=== PATIENT | female | born 1990 | race Caucasian/White ===

== ENCOUNTER 2025-01-01 18:27 | Inpatient (IN) | payer OTHER, SELFPAY ==
--- OUTSIDE RECORDS SUMMARY | 2024-12-31 18:00 | XMS_ITS | Encounter Summary ---
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 Amphetamines 1000 ng/mL Barbiturates 200 ng/mL Benzodiazepines 200 ng/mL Cocaine 300 ng/mL Fentanyl 1 ng/mL Opiates 300 ng/mL Oxycodone 100 ng/mL THC 50 ng/mL Semi-quantitative assay for screening purposes only. Unconfirmed screening result should not be used for non-medical purposes. *ALTERNATE METHOD CONFIRMATION DONE UPON REQUEST ONLY* us Stefano Thompson MD LAB URINE ORDERABLES Final Resul t Performing Organization Address [facility]/ZIP Co de Phone Number [facility] [address] [place] [address], * (ABNORMAL) Salicylate level (12/31/2024 6:34 PM EST) Salicylate Level <1.7(L) 2.0 - 29.0 mg/dL LAB CHEMISTRY METHOD 12/31/2024 7:13 PM EST [facility] Blood Venous blood specimen / Unknown Venipuncture / Unknown 12/31/2024 6:34 PM EST 12/31/2024 6:50 PM EST us Stefano Thompson MD LAB BLOOD ORDERABLES Final Resul t Performing Organization Address [facility]/ZIP Co de Phone Number [facility] [address] [place] [address], * (ABNORMAL) Acetaminophen level (12/31/2024 6:34 PM EST) Acetaminophen Level <2.0(L) 10.0 - 30.0 mcg/mL LAB CHEMISTRY METHOD 12/31/2024 7:13 PM EST [facility] Blood Venous blood specimen / Unknown Venipuncture / Unknown 12/31/2024 6:34 PM EST 12/31/2024 6:50 PM EST us Stefano Thompson MD LAB BLOOD ORDERABLES Final Resul t Performing Organization Address [facility]/ZIP Co de Phone Number [facility] [address] [place] [address], [place] [phone] * Ethanol (12/31/2024 6:34 PM EST) Ethanol Level <3 0 - 10 mg/dL LAB CHEMISTRY METHOD 12/31/2024 7:13 PM [facility] Blood Venous blood specimen / Unknown Venipuncture / Unknown 12/31/2024 6:34 PM EST 12/31/2024 6:50 PM EST us Stefano Thompson MD LAB BLOOD ORDERABLES Final Resul t Performing Organization Address [facility] Co de Phone Number [facility] [address] [place] [address], [place] [phone] * (ABNORMAL) Comprehensive metabolic panel (12/31/2024 6:34 PM EST) Pathologist [facility] Sodium 137 133 - 145 mmol/L LAB CHEMISTRY METHOD 12/31/2024 7:13 PM [facility] Potassium 3.4(L) 3.5 - 5.5 mmol/L LAB CHEMISTRY METHOD 12/31/2024 7:13 PM [facility] Chloride 103 96 - 110 mmol/L LAB CHEMISTRY METHOD 12/31/2024 7:13 PM [facility] CO2 29 21 - 32 mmol/L LAB CHEMISTRY METHOD 12/31/2024 7:13 PM [facility] Anion Gap 5 3 - 11 LAB CHEMISTRY METHOD 12/31/2024 7:13 PM [facility] Glucose 116(H) 70 - 100 mg/dL LAB CHEMISTRY METHOD 12/31/2024 7:13 PM [facility] BUN 13 5 - 25 mg/dL LAB CHEMISTRY METHOD 12/31/2024 7:13 PM [facility] Creatinine 0.63 0.50 - 1.10 mg/dL LAB CHEMISTRY METHOD 12/31/2024 7:13 PM [facility] eGFR 119 >=60 mL/min/1. 73m2 LAB CHEMISTRY METHOD 12/31/2024 7:13 PM [facility] Comment:Calculation based on the Chronic Kidney Disease Epidemiology Collaboration (CKD-EPI) equation refit without adjustment for race. BUN/Creatinine Ratio 20.6 LAB CHEMISTRY METHOD 12/31/2024 7:13 PM [facility] Calcium 9.3 8.5 - 10.5 mg/dL LAB CHEMISTRY METHOD 12/31/2024 7:13 PM [facility] AST (SGOT) 34 10 - 42 unit/L LAB CHEMISTRY METHOD 12/31/2024 7:13 PM [facility] ALT (SGPT) 104(H) 10 - 60 unit/L LAB CHEMISTRY METHOD 12/31/2024 7:13 PM [facility] Alkaline Phosphatase 122(H) 42 - 121 unit/L LAB CHEMISTRY METHOD 12/31/2024 7:13 PM [facility] Total Protein 6.9 6.0 - 8.0 g/dL LAB CHEMISTRY METHOD 12/31/2024 7:13 PM [facility] Albumin 3.7 3.2 - 5.0 g/dL LAB CHEMISTRY METHOD 12/31/2024 7:13 PM [facility] Total Bilirubin 0.3 0.0 - 1.4 mg/dL LAB CHEMISTRY METHOD 12/31/2024 7:13 PM [facility] Blood Venous blood specimen / Unknown Venipuncture / Unknown 12/31/2024 6:34 PM EST 12/31/2024 6:50 PM EST us Stefano Thompson MD LAB BLOOD ORDERABLES Final Resul t [facility] [address] [place] [address], * POC , urine manually resulted (12/31/2024 6:13 PM EST) HCG, Ur POC Negative Negative POC hCG Int QC Pass? Yes Yes Urine Urine specimen obtained by clean catch procedure / Unknown 12/31/2024 6:13 PM EST José Manuel Angel MD POINT OF CARE TEST ENTER/EDIT ORDERABLES Final Result documented in this encounter Visit Diagnoses Diagnosis Current moderate episode of major depressive disorder, unspecified whether recurrent (CMS/HCC V24, CMS/HCC V28)- Primary documented in this encounter Administered Medications Active Administered Medications - up to 3 most recent administrations Medication Order MAR Action Action Date Dose Rate Site bicalutamide (CASODEX) tablet 50 mg 50 mg, oral, Daily, First dose on 01/01/25 at 0900, Antineoplastic Hazardous Medication - Single pair of ASTM standard [id number] certified gloves - Eye/face protection if vomit or potential to spit up - Do NOT split, crush, or open dosage units Given 01/01/2025 10:05 AM EST 50 mg cloNIDine (CATAPRES) tablet 0.1 mg 0.1 mg, oral, 2 times daily, First dose on 01/01/25 at 0900 Given 01/01/2025 9:32 AM EST 0.1 mg estradioL (ESTRACE) tablet 2 mg 2 mg, oral, 3 times daily, First dose on 01/01/25 at 0900, Package insert for estrogens should be provided to patients with first dose and every 30 days of therapy. Hazardous Medication Intact: - Single pair of ASTM standard [id number] certified gloves - Eye/face protection if vomit or potential to spit up Manipulated: - Double pair of ASTM standard [id number] certified gloves - Eye/face protection if vomit or potential to spit up - Staff at reproductive risk must also wear a hazardous gown - Crushing must be performed in sealed closed pouch - Splitting/cutting should be performed by pharmacy, if possible Given 01/01/2025 2:17 PM EST 2 mg Given 01/01/2025 10:04 AM EST 2 mg finasteride (PROPECIA) tablet 1 mg 1 mg, oral, Daily, First dose on 01/01/25 at 0900, Hazardous Medication Intact: - Single pair of ASTM standard [id number] certified gloves - Eye/face protection if vomit or potential to spit up - Do NOT split, crush, or open dosage units Given 01/01/2025 10:05 AM EST 1 mg gabapentin (NEURONTIN) capsule 600 mg 600 mg, oral, 3 times daily, First dose on 01/01/25 at 0900 Given 01/01/2025 2:17 PM EST 600 mg Given 01/01/2025 9:32 AM EST 600 mg naltrexone (DEPADE) tablet 100 mg 100 mg, oral, Daily, First dose on 01/01/25 at 0900 Given 01/01/2025 10:06 AM EST 100 mg prazosin (MINIPRESS) capsule 1 mg 1 mg, oral, Daily, First dose on 01/01/25 at 0900 Given 01/01/2025 9:32 AM EST 1 mg sertraline (ZOLOFT) tablet 100 mg 100 mg, oral, Daily, First dose on 01/01/25 at 0900 Given 01/01/2025 9:32 AM EST 100 mg Inactive Administered Medications - up to 3 most recent administrations Medication Order MAR Action Action Date Dose Rate Site acetaminophen (TYLENOL) tablet 650 mg 650 mg, oral, Once, On 01/01/25 at 0005, For 1 dose Given 01/01/2025 3:29 AM EST 650 mg LORazepam (ATIVAN) tablet 2 mg 2 mg, oral, Once, On 01/01/25 at 0322, For 1 dose Given 01/01/2025 3:29 AM EST 2 mg documented in this encounter Historical Medications * This list may reflect changes made after this encounter. sertraline (ZOLOFT) 100 mg tablet Take 1 tablet (100 mg total) by mouth 1 (one) time each day. 11/24/2024 prazosin (MINIPRESS) 1 mg capsule Take 1 capsule (1 mg total) by mouth 1 (one) time each day. at bedtime naltrexone (DEPADE) 50 mg tablet Take 2 tablets (100 mg total) by mouth daily. 09/14/2024 melatonin 10 mg tablet Take 1 tablet (10 mg total) by mouth at bedtime as needed for sleep. 12/26/2024 hydrOXYzine HCL (ATARAX) 25 mg tablet Take 1 tablet (25 mg total) by mouth 2 (two) times a day if needed for anxiety. gabapentin (NEURONTIN) 600 mg tablet Take 1 tablet (600 mg total) by mouth 3 (three) times a day. 11/24/2024 finasteride (PROPECIA) 1 mg tablet Take 1 tablet (1 mg total) by mouth daily. 08/17/2024 estradioL (ESTRACE) 2 mg tablet Take 1 tablet (2 mg total) by mouth 3 times daily. 12/06/2024 cloNIDine (CATAPRES) 0.1 mg tablet Take 1 tablet (0.1 mg total) by mouth 2 (two) times a day if needed. 12/26/2024 bicalutamide (CASODEX) 50 mg tablet Take 1 tablet (50 mg total) by mouth daily 11/15/2024 added in this encounter Active and Recently Administered Medications Times are shown in EST. Scheduled Medication Order 12/30/2024 12/31/2024 01/01/2025 acetaminophen (TYLENOL) tablet 650 mg (COMPLETED) 650 mg, oral, Once, On 01/01/25 at 0005, For 1 dose 0329 (Given - Provid er: Martine Arvizu RN) bicalutamide (CASODEX) tablet 50 mg 50 mg, oral, Daily, First dose on 01/01/25 at 0900, Antineoplastic Hazardous Medication - Single pair of ASTM standard [id number] certified gloves - Eye/face protection if vomit or potential to spit up - Do NOT split, crush, or open dosage units 1005 (Given - Provid er: Elizabeth Mccollum RN) cloNIDine (CATAPRES) tablet 0.1 mg 0.1 mg, oral, 2 times daily, First dose on 01/01/25 at 0900 0932 (Given - Provid er: Elizabeth Mccollum RN)2100 (Due) estradioL (ESTRACE) tablet 2 mg 2 mg, oral, 3 times daily, First dose on 01/01/25 at 0900, Package insert for estrogens should be provided to patients with first dose and every 30 days of therapy. Hazardous Medication Intact: - Single pair of ASTM standard [id number] certified gloves - Eye/face protection if vomit or potential to spit up Manipulated: - Double pair of ASTM standard [id number] certified gloves - Eye/face protection if vomit or potential to spit up - Staff at reproductive risk must also wear a hazardous gown - Crushing must be performed in sealed closed pouch - Splitting/cutting should be performed by pharmacy, if possible 1004 (Given - Provid er: Elizabeth Mccollum RN)1417 (Given - Provider: Elizabeth Mccollum RN)2099 (Due) finasteride (PROPECIA) tablet 1 mg 1 mg, oral, Daily, First dose on 01/01/25 at 0900, Hazardous Medication Intact: - Single pair of ASTM standard [id number] certified gloves - Eye/face protection if vomit or potential to spit up - Do NOT split, crush, or open dosage units 1005 (Given - Provid er: Elizabeth Mccollum RN) gabapentin (NEURONTIN) capsule 600 mg 600 mg, oral, 3 times daily, First dose on 01/01/25 at 0900 0932 (Given - Provid er: Elizabeth Mccollum RN)1417 (Given - Provider: Elizabeth Mccollum RN)2099 (Due) LORazepam (ATIVAN) tablet 2 mg (COMPLETED) 2 mg, oral, Once, On 01/01/25 at 0322, For 1 dose 0329 (Given - Provid er: Martine Arvizu RN) naltrexone (DEPADE) tablet 100 mg 100 mg, oral, Daily, First dose on 01/01/25 at 0900 1006 (Given - Provid er: Elizabeth Mccollum RN) prazosin (MINIPRESS) capsule 1 mg 1 mg, oral, Daily, First dose on 01/01/25 at 0900 0932 (Given - Provid er: Elizabeth Mccollum RN) sertraline (ZOLOFT) tablet 100 mg 100 mg, oral, Daily, First dose on 01/01/25 at 0900 0932 (Given - Provid er: Elizabeth Mccollum RN) PRN Medication Order 12/30/2024 12/31/2024 01/01/2025 hydrOXYzine HCL (ATARAX) tablet 25 mg 25 mg, oral, 2 times daily PRN, anxiety, Starting on 01/01/25 at 0828 melatonin disintegrating tablet 10 mg 10 mg, oral, Nightly PRN, sleep, Starting on 01/01/25 at 0828 documented in this encounter Orders Medications Ordered That Kei ht Not Have Been Administered Count Last Ordered Date First Ordered Date hydrOXYzine HCL (ATARAX) tablet 25 mg 1 10/2024 melatonin disintegrating tablet 10 mg 1 10/2024 Diet Count Last Ordered Date First Orde red Date ADULT DIET 1 12/31/2024 Consult Count Last Ordered Date First Orde red Date IP CONSULT TO SUBSTITUTE NURSE 1 12/31/2024 Precaution Count Last Ordered Date First Orde red Date SUICIDE PRECAUTIONS 1 12/31/2024 Privilege Level Count Last Ordered Date First O rdered Date PATIENT FUR CUTTING MACHINE OPERATOR 1 12/31/2024 documented in this encounter Care Teams Cleaning And Washing Equipment Operator Relationship Specialty Start Date End Date Physician, Pcp Unknown PCP - General 12/31/24 documented as of this encounter
--- OUTSIDE RECORDS SUMMARY | 2025-01-01 18:34 | XMS_ITS | Encounter Summary ---
Author Organization [facility] Initia tive Address [address] [facility], [facility] [address] [place] [id number] Phone Care Team Providers Care Dog Track Kennel Manager Name Role Phone Uday Del Rosario DO Primary Care Provider [phone] Reason for Visit * Reason Comments Medication Refill Encounter Details Date Type Department Care Team (Late st Contact Info) Description 09/24/[address] [place] [address] Uday Del Rosario DO [address] [facility] [address] [place] [address] Medication Refill Social History Tobacco Use Types Packs/Day Years Used Date Smoking Tobacco: Never Smokeless Tobacco: Never Alcohol Use Standard Drinks/Week Comments Yes 0 (1 standard drink = 0.6 oz pur e alcohol) AUDIT-C Answer Date Recorded Q1: How often do you have a drink containing alc ohol? 2-3 times a week 09/25/2020 Q2: How many drinks containi ng alcohol do you have on a typical day when you are drinking? Not asked 09/25/2020 Q3: How often do you have si x or more drinks on one occasion? Not asked 09/25/2020 Sex and Gender Information Value Date Recorded Sex Assigned at Male 11/14/2019 3:42 PM EDT Legal Sex Female 1:04 PM EST Gender Identity Female 11/14/2019 3:42 PM EDT Sexual Orientation Choose not to disclose 2024 3:26 PM EDT documented as of this encounter Functional Status documented as of this encounter Plan of Treatment Not on file documented as of this encounter Visit Diagnoses Diagnosis Endocrine disorder, unspecified documented in this encounter Care Teams Dog Track Kennel Manager Relationship Specialty Start Date End Date Uday Del Rosario DO [address] [place] [address] [place] [address] PCP - General Family Medicine 07/10/23 12/22/23 documented as of this encounter
--- OUTSIDE RECORDS SUMMARY | 2025-01-01 18:34 | XMS_ITS | Encounter Summary ---
Author Organization [facility] Initia tive Address [address], [place] [address] [place] [address] Phone Care Team Providers Care Cda Teacher Name Role Phone Unavailable Primary Care Provider Unavailabl e Encounter Details Date Type Department Care Team (Late st Contact Info) Description 03/24/2024 Scanned Document [facility] [address], [address] [place] [address] Provider, Historical . Social History Tobacco Use Types Packs/Day Years [...] PM EDT documented as of this encounter Plan of Treatment Not on file documented as of this encounter Procedures Procedure Name Priority Date/Time Associated Diagnosis Comments COMPREHENSIVE METABOLIC PANEL Routine 03/24/2024 1:40 PM EST VITAMIN D, 25-HYDROXY Routine 03/24/2024 1:40 PM EST PROLACTIN Routine 03/24/2024 1:40 PM EST ESTRADIOL (BH GH L LMW Q) Routine 2024 1:40 PM EST LIPID PANEL Routine 03/24/2024 1:40 PM EST CBC NO DIFF (ABSTRACTED) Routine 025 1:35 PM EST HEMOGLOBIN A1C Routine 03/24/2024 1:32 PM EST documented in this encounter Results * Comprehensive metabolic panel (03/24/2024 1:40 PM EST) Blood Result [facility] Provider LAB BLOOD ORDERABLES Final R esult * Prolactin (03/24/2024 1:40 PM EST) Blood Result [facility] Provider LAB BLOOD ORDERABLES Final R esult * Estradiol (03/24/2024 1:40 PM EST) Blood Result [facility] Provider LAB BLOOD ORDERABLES Final R esult * Lipid panel (03/24/2024 1:40 PM EST) Blood Result [facility] Provider LAB BLOOD ORDERABLES Final R esult * Vitamin D, 25-hydroxy (03/24/2024 1:40 PM EST) Blood Result [facility] Provider LAB BLOOD ORDERABLES Final R esult * CBC no diff (Abstracted) (03/24/2024 1:35 PM EST) Result [facility] Provider LAB BLOOD ORDERABLES Final R esult * Hemoglobin A1c (03/24/2024 1:32 PM EST) Blood us Historical Provider LAB BLOOD ORDERABLES Final R esult documented in this encounter Visit Diagnoses Not on filedocumented in this encounter
--- OUTSIDE RECORDS SUMMARY | 2025-01-01 18:34 | XMS_ITS | Encounter Summary ---
Author Organization [facility] Initia tive Address [address] [facility], [facility] [address] [place] [id number] Phone Care Team Providers Care Anesthesiology Medical Doctor Name Role Phone Uday Del Rosario DO Primary Care Provider [phone] Reason for Visit * Reason Comments Medication Refill Encounter Details Date Type Department Care Team (Late st Contact Info) Description 03/27/[address] [place] [address] Candelaria Waterman, FLUSH TESTER [address] [facility] [address] [place] [address] Medication Refill Social History Tobacco [...] unspecified documented in this encounter Care Teams Anesthesiology Medical Doctor Relationship Specialty Start Date End Date Uday Del Rosario DO [address] [place] [address] PCP - General Family Medicine 07/10/23 12/22/23 documented as of this encounter
--- OUTSIDE RECORDS SUMMARY | 2025-01-01 18:34 | XMS_ITS | Encounter Summary ---
Author Organization [facility] Initia tive Address [address], [place] [id number] Phone Care Team Providers Care Licensed Physical Therapist Assistant Name Role Phone Uday Del Rosario DO Primary Care Provider [phone] Encounter Details Date Type Department Care Team (Late st Contact Info) Description 03/18/[address] [address] Jessica Vargas APRN [address] [address] Social History Tobacco Use Types Packs/Day Years [...] not to disclose 2024 3:26 PM EDT COVID-19 Exposure Response Date Recorded In the last 10 days, have yo u been in contact with someone who was confirmed or suspected to have Coronavirus/COVID-19? No / Unsure 03/18/2022 8:43 PM EST documented as of this encounter Miscellaneous Notes * Telephone Encounter - Celena Suh - 03/18/2022 1:55 PM EST Called pt in regards to consultation with [facility]. Pt is moving and will be losing Husky, pt was concerned about losing appt, I informed pt to figure out what insurance they will be getting after they move and see if it would be covered or what office they could go to if not. Pt mentioned possiblywanting to pay out of pocket, I informed pt to call [facility] and ask for out of pocket costs. Warned pt that they should npt mention Losing husky to [facility] [employer] [facility]. documented in this encounter Plan of Treatment Not on file documented as of this encounter Visit Diagnoses Not on filedocumented in this encounter Care Teams Licensed Physical Therapist Assistant Relationship Specialty Start Date End Date Uday Del Rosario DO [address] [address] PCP - General Family Medicine 07/10/23 12/22/23 documented as of this encounter
--- OUTSIDE RECORDS SUMMARY | 2025-01-01 18:34 | XMS_ITS | Clinical Summary ---
Author Organization [address] Address [address] [place] [id number] Care Team Providers Care Chancery Clerk Name Role Phone Unavailable Primary Care Provider Unavailabl e Allergies No known active allergies Medications melatonin 1 mg Chew Take by mouth. Activ e omega-3 fatty acids 1,000 mg capsule Take 2 capsules (2 g total) by mouth daily. Active famotidine (PEPCID) 20 mg tablet Take 1 tablet (20 mg total) by mouth 2 (two) times daily. 30 tablet 03/18/19 23 Active Additional Information Patient not taking.Reported on 05/23/2024 finasteride (PROPECIA) 1 mg tabletIndicatio ns:Endocrine disorder, unspecified Take 1 tablet (1 mg total) by mouth daily. 90 tablet 2 08/18/19 25 Active multivitamin (ONE DAILY MULTIVITAMIN) tablet Take 1 tablet by mouth daily. Active BIOTIN ORAL Take 1 mg by mouth daily. Dose unknown Active folic acid (FOLVITE) 1 mg tablet Take 1 tablet (1 mg total) by mouth daily. Active GARLIC OIL ORAL Take 1 mg by mouth daily. Dose unknown Active naltrexone (REVIA) 50 mg tablet Take 2 tablets (100 mg total) by mouth daily. 09/15/19 25 Active prazosin (MINIPRESS) 1 mg capsule Take 3 capsules (3 mg total) by mouth nightly at bedtime. 09/15/19 25 Active hydrOXYzine (ATARAX) 25 mg tablet Take 1 tablet (25 mg total) by mouth every 6 (six) hours as needed for anxiety. 09/15/19 25 Active sertraline (ZOLOFT) 50 mg tablet Take 1 tablet (50 mg total) by mouth daily. 09/15/19 25 Active cholecalciferol , vitamin D3, 25 mcg (1,000 unit) tabletIndicatio ns:Endocrine disorder, unspecified Take 1 tablet (1,000 Units total) by mouth daily. 90 tablet 2 11/16/19 25 Active bicalutamide (CASODEX) 50 mg tabletIndicatio ns:Endocrine disorder, unspecified Take 1 tablet (50 mg total) by mouth daily. 90 tablet 2 11/16/19 25 Active estradioL (ESTRACE) 2 mg tabletIndicatio ns:Endocrine disorder, unspecified TAKE 1 Tablet (2MG) BY MOUTH THREE TIMES DAILY 90 tablet 2 12/07/19 25 Active estradioL (ESTRACE) 2 mg tabletIndicatio ns:Endocrine disorder, unspecified TAKE 1 Tablet (2MG) BY MOUTH THREE TIMES DAILY 90 tablet 2 09/15/19 25 025 Discontinued Active Problems Problem Noted Date Diagnosed Date Anxiety and depression 10/02/2021 Vitamin D deficiency 05/17/2021 PTSD (post-traumatic stress disorder) 03/01/2020 Endocrine disorder, unspecified 12/09/2019 Assessment & Plan (07/20/2024 2:27 PM EDT): Orders: finasteride (PROPECIA) 1 mg tablet; Take 1 tablet (1 mg total) by mouth daily. estradioL (ESTRACE) 2 mg tablet; Take 1 tablet (2 mg total) by mouth 3 (three) times daily. bicalutamide (CASODEX) 50 mg tablet; Take 1 tablet (50 mg total) by mouth daily. Encounters Date Type Department Care Team Description 12/16/[address] [place] [address] Sandra Forte APRN Triage 12/02/2024 Refill [facility] [address] [facility], [address] [place] [address] Sandra Forte APRN Medication Refill 11/10/2024 Refill [facility], [place] [address], [address] [place] [address] Sandra Forte APRN Medication Refill 11/10/[address] [place], [place] [id number] Jessica Vargas APRN Medication Refill from Last 3 Months Immunizations Immunization Administration Dates Next Due COVID-19 Vaccine - PFIZER 11/14/2020 COVID-19, MODERNA Booster, 0.25mL 05/17/2021 HPV9 11/21/2021,06/17/2021,05/17/2021 Influenza, injectable, MDCK, quad, preservative free 04/05/2020 Influenza, injectable, quadr ivalent, preservative free 03/17/2022 Tdap 04/05/2020 Family History Medical History Relation Name Comments Cancer Maternal Grandfather Cancer Mother Diabetes Paternal Grandfather Diabetes Paternal Grandmother No Known Problems Sister Relation Name Status Comments Maternal Grandfather Mother Paternal Grandfather Paternal Grandmother Sister Social History Tobacco Use Types Packs/Day Years Used Date Smoking Tobacco: Never Smokeless Tobacco: Never Tobacco Cessation:Counseling Given: Not Answered Alcohol Use Standard Drinks/Week Comments Yes 2 (1 standard drink = 0.6 oz pur [...] not to disclose 2024 3:26 PM EDT Last Filed Vital Signs Vital Sign Reading Time Taken Comments Blood Pressure 122/88 05/23/2024 3:55 PM EDT Pulse 94 05/23/2024 3:55 PM EDT Temperature 37.1 C (98.8 F) 05/23/2024 3:55 PM EDT Respiratory Rate 20 05/23/2024 3:55 PM EDT Oxygen Saturation 97% 05/23/2024 3:55 PM EDT Inhaled Oxygen Concentration - - Weight 112.5 kg (248 lb) 05/23/2024 3:55 PM EDT Height 172 cm (5' 7.72 ) 05/23/2024 3:55 PM EDT Body Mass Index 38.02 05/23/2024 3:55 PM EDT Plan of Treatment Health Maintenance Due Date Last Done Comments Influenza vaccine 09/23/2024 03/17/2022, 04/05/2020 Covid-19 vaccine series ( season) 2024 05/17/2021, 12/05/2020, 11/14/2020 Tetanus adult (Td q 10,TDAP once) 04/05/2030 04/05/2020 RSV Immunization (1 - 1-dose 75+ series) 2064 HIV screening Completed 02/15/2020 Hepatitis C screening Completed 02/15/2020 , 02/15/2020 Meningococcal B Vaccine Aged Out No l onger eligible based on patient's age to complete this topic Meningococcal Vaccine Aged Out No chang nathalie eligible based on patient's age to complete this topic Pneumococcal Vaccine (2 - 49 years) Aged Out No longer eligible b ased on patient's age to complete this topic Procedures Procedure Name Priority Date/Time Associated Diagnosis Comments HIV 1/2 AG/AB, W/REFLEXES (Q) Routine 02/15/2020 1:33 PM EST Endocrine disorder, unspecified HEPATITIS C AB WITH REFLEX TO HCV PCR Routine 02/15/2020 1:33 PM EST from Last 3 Months or Most Recently Relevant to Health Maintenance Results * HIV 1/2 ag/ab, w/reflexes (Q) (02/15/2020 1:33 PM EST) HIV Ag/Ab, 4th Generation NON-REACT STEPHANIE NON-REACT STEPHANIE [facility] Comment: HIV-1 antigen and HIV-1/HIV-2 antibodies were not detected. There is no laboratory evidence of HIV infection. PLEASE NOTE: This information has been disclosed to you from records whose confidentiality may be protected by state law. If your state requires such protection, then the state law prohibits you from making any further disclosure of the information without the specific written consent of the person to whom it pertains, or as otherwise permitted by law. A general authorization for the release of medical or other information is NOT sufficient for this purpose. For additional information please refer to http://GlycoPure.Soonr/faq/ZIC023 (This link is being provided for informational/ educational purposes only.) The performance of this assay has not been clinically validated in patients less than 2 years old. Blood 02/15/2020 1:33 PM EST 02/15/2020 1:33 PM EST Narrative Resulting Agency Comment Performing Lab: Site ID: [id number] Name: [facility] Address: [address] [place] [address], [place] [address] Director: Tashia Meneses MD Aj Carin DO LAB BLOOD ORDERABLES Final Resul t Performing Organization Address [facility] de Phone Number [facility] [address] [place] [address] * Hepatitis C Ab with reflex to HCV PCR (02/15/2020 1:33 PM EST) Hepatitis C Ab NON-REACT STEPHANIE NON-REACT STEPHANIE [facility] Signal To Cut-Off 0.01 <1.00 [facility] Comment: HCV antibody was non-reactive. There is no laboratory evidence of HCV infection. In most cases, no further action is required. However, if recent HCV exposure is suspected, a test for HCV RNA (test code 69384) is suggested. For additional information please refer to http://GlycoPure.Soonr/faq/YKS77k8 (This link is being provided for informational/ educational purposes only.) 02/15/2020 1:33 PM EST 02/15/2020 1:33 PM EST Narrative Resulting Agency Comment Performing Lab: Site ID: [id number] Name: [facility] Address: [address] [place] [address], [place] [address] Director: Tashia Meneses MD Aj Carin DO LAB BLOOD ORDERABLES Final Resul t Performing Organization Address [facility] Co de Phone Number [address] from Last 3 Months or Most Recently Relevant to Health Maintenance Insurance [place]
--- OUTSIDE RECORDS SUMMARY | 2025-01-01 18:34 | XMS_ITS | Encounter Summary ---
Author Organization [facility] Initia tive Address [address] [facility] [address] [place] [address] Phone Care Team Providers Care Biometrics Analyst Name Role Phone Uday Del Rosario DO Primary Care Provider [phone] Reason for Visit * Reason Comments Medication Refill Encounter Details Date Type Department Care Team (Late st Contact Info) Description 02/22/[address] [place] [address] [place] [address] [place] [address] [address] [place] [address] Medication Refill Social History Tobacco Use Types Packs/Day Years Used Date Smoking Tobacco: Never Smokeless Tobacco: Never Alcohol Use Standard Drinks/Week Comments Yes 0 (1 standard drink = 0.6 oz pur e alcohol) AUDIT-C Answer Date Recorded Frequency of Alcohol Consumption 2-3 times a wee k 12/09/2019 Average Number of Drinks Not asked 020 Frequency of Binge Drinking Not asked 11/23 Sex and Gender Information Value Date Recorded Sex Assigned at Male 11/14/2019 3:42 PM EDT Legal Sex Female 1:04 PM EST Gender Identity Female 11/14/2019 3:42 PM EDT Sexual Orientation Choose not to disclose 2024 3:26 PM EDT COVID-19 Exposure Response Date Recorded In the last month, have you been in contact with someone who was confirmed or suspected to have Coronavirus / COVID-19? No / Unsure 02/15/2020 1:12 PM EST documented as of this encounter Plan of Treatment Not on file documented as of this encounter Visit Diagnoses Diagnosis Endocrine disorder, unspecified documented in this encounter Care Teams Biometrics Analyst Relationship Specialty Start Date End Date Uday Del Rosario DO [address] [phone] PCP - General Family Medicine 07/10/23 12/22/23 documented as of this encounter
--- OUTSIDE RECORDS SUMMARY | 2025-01-01 18:34 | XMS_ITS | Encounter Summary ---
Author Organization [facility] Initia tive Address [address] [facility], [facility] [address] [place] [address] Phone Care Team Providers Care Dock Hand Name Role Phone Unavailable Primary Care Provider Unavailabl e Reason for Visit * Reason Comments Medication Refill Encounter Details Date Type Department Care Team (Late st Contact Info) Description 06/18/2024 [facility] [address] [facility] [address] [place] [address] Sandra Forte, ENGINEER STATION MAINLINE [address] [facility] [address] [place] [address] Medication Refill Social History Tobacco Use Types Packs/Day Years Used Date Smoking Tobacco: Never Smokeless Tobacco: Never Alcohol Use Standard Drinks/Week Comments Yes 2 [...]
--- OUTSIDE RECORDS SUMMARY | 2025-01-01 18:34 | XMS_ITS | Clinical Summary ---
Author Organization [facility] [place] [address] Phone Care Team Providers Care Retail Banker Name Role Phone Physician, Pcp Unknown Primary Care Provider Nataliia vailable Allergies No known active allergies Medications bicalutamide (CASODEX) 50 mg tablet Take 1 tablet (50 mg total) by mouth daily 11/15/2024 Active cloNIDine (CATAPRES) 0.1 mg tablet Take 1 tablet (0.1 mg total) by mouth 2 (two) times a day if needed. 12/26/2024 Active estradioL (ESTRACE) 2 mg tablet Take 1 tablet (2 mg total) by mouth 3 times daily. 12/06/2024 Active finasteride (PROPECIA) 1 mg tablet Take 1 tablet (1 mg total) by mouth daily. 08/17/2024 Active gabapentin (NEURONTIN) 600 mg tablet Take 1 tablet (600 mg total) by mouth 3 (three) times a day. 11/24/2024 Active hydrOXYzine HCL (ATARAX) 25 mg tablet Take 1 tablet (25 mg total) by mouth 2 (two) times a day if needed for anxiety. Active melatonin 10 mg tablet Take 1 tablet (10 mg total) by mouth at bedtime as needed for sleep. 12/26/2024 Active naltrexone (DEPADE) 50 mg tablet Take 2 tablets (100 mg total) by mouth daily. 09/14/2024 Active prazosin (MINIPRESS) 1 mg capsule Take 1 capsule (1 mg total) by mouth 1 (one) time each day. at bedtime Active sertraline (ZOLOFT) 100 mg tablet Take 1 tablet (100 mg total) by mouth 1 (one) time each day. 11/24/2024 Active Encounters Date Type Department Care Team Description 12/31/2024 6:00 PM EST - 01/01/2025 6:13 PM EST Emergency [facility] Emergency [address] [place] [id number] Stefano Thompson MD Linnerooth, Warren, MD Muhoozi, Bannet, MD Zaidi, Aren Bragg MD Current moderate episode of major depressive disorder, unspecified whether recurrent (CMS/HCC V24, CMS/[facility] V28) (Primary Dx) Discharge Disposition: Another Health Care Institution Not Defined from Last 3 Months Medical History Medical History Date Comments Depression Anxiety Transgender per EMR Social History Tobacco Use Types Packs/Day Years [...] on file Sexual Orientation Not on file Obstetrics History Last Filed Vital Signs Vital Sign Reading [...] Mass Index 25.06 12/31/2024 5:47 PM EST Plan of Treatment Health Maintenance Due Date Last Done Comments Hepatitis B Vaccines (1 of 3 - 19+ 3-dose series) 2008 Pneumococcal Vaccine: Pediatrics (0 to 5 Years) and At-Risk Patients (6 to 49 Years) (1 of 2 - PCV) 2008 Cervical Cancer Screening: P ap Smear 2010 COVID-19 Vaccine (3 - Mixed Product risk series) 06/14/2021 05/17/2021, 11/14/2020 Depression Screening 02/24/2024 Influenza Vaccine (#1) 2024 3, 04/05/2020 HIV Screening 12/31/2024 Social Influencers of Health Screening 12/31/2024 Cholesterol Screening (Lipid Panel) 03/23/2029 03/23/2024 DTaP,Tdap,and Td Vaccines (2 - Td or Tdap) 04/05/2030 04/05/2020 RSV Immunization Adult Patients (1 - 1-dose 75+ series) 2064 Hepatitis C Screening Completed 02/15/2020 HPV Vaccines Completed 11/21/2021, 06/17/2021, 05/17/2021 HIB Vaccines Aged Out No longer eligi ble based on patient's age to complete this topic Hepatitis A Vaccines Aged Out No long er eligible based on patient's age to complete this topic IPV Vaccines Aged Out No longer eligi ble based on patient's age to complete this topic MMR Vaccines Aged Out No longer eligi ble based on patient's age to complete this topic Meningococcal ACWY Vaccine Aged Out N o longer eligible based on patient's age to complete this topic Meningococcal B Vaccine Aged Out No l onger eligible based on patient's age to complete this topic RSV Immunization Patients Under 20 months Aged Out No longer eligible b ased on patient's age to complete this topic Varicella Vaccines Aged Out No longer eligible based on patient's age to complete this topic Procedures Procedure Name Priority Date/Time Associated Diagnosis Comments ECG 12-LEAD STAT 12/31/2024 7:46 PM EST CBC WITH AUTO DIFFERENTIAL STAT 12/31/2024 6:34 PM EST METHADONE SCREEN, URINE STAT 12/31/2024 6:34 PM EST PHENCYCLIDINE, URINE STAT 12/31/2024 6:34 PM EST BUPRENORPHINE SCREEN, URINE STAT 12/31/2024 6:34 PM EST DRUG ABUSE SCREEN 8A PANEL, URINE STAT 12/31/2024 6:34 PM EST SALICYLATE LEVEL STAT 12/31/2024 6:34 PM EST ACETAMINOPHEN LEVEL STAT 12/31/2024 6 :34 PM EST ETHANOL STAT 12/31/2024 6:34 PM EST COMPREHENSIVE METABOLIC PANEL STAT 12/31/2024 6:34 PM EST CBC AND DIFFERENTIAL STAT 12/31/2024 6:34 PM EST POC , URINE DIAGNOSTIC STAT 12/31/2024 6:13 PM EST from Last 3 Months Results * ECG 12 lead (12/31/2024 7:46 PM EST) Ventricular Rate ECG 84 BPM GEMUSE Atrial Rate 84 BPM GEMUSE P-R Interval 150 ms GEMUSE QRS Duration 90 ms GEMUSE Q-T Interval 390 ms GEMUSE QTc 460 ms GEMUSE P Wave Cedar 24 degrees GEMUSE R Cedar 42 degrees GEMUSE T Cedar 31 degrees GEMUSE ECG Interpretation Normal sinus rhythm Normal ECG No previous ECGs available Confirmed by JERED BENITEZ ([id number]) on 01/01/2025 5:06:11 PM GEMUSE 12/31/2024 7:46 PM EST 01/01/2025 5:06 PM EST us Stefano Thompson MD ECG ORDERABLES Final Result GEMUSE * (ABNORMAL) Drug abuse screen 8a panel, urine (12/31/2024 6:34 PM EST) Amphetamine Screen, Ur Negative Negative LAB CHEMISTRY METHOD 7:20 PM EST [facility] Comment:Certain OTC medicati ons containing ephedrine, phenylephrine, pseudoephedrine and phenylpropanolamine can cause false positive results. Barbiturate Screen, Ur Negative Negative LAB CHEMISTRY METHOD 7:20 PM [facility] Benzodiazepine Screen, Ur Negative Negative LAB CHEMISTRY METHOD 5 7:20 PM [facility] Cocaine Screen, Ur Negative Negative LAB CHEMISTRY METHOD 5 7:20 PM [facility] Opiate Screen, Ur Negative Negative LAB CHEMISTRY METHOD 5 7:20 PM [facility] Cannabinoid (THC) Screen, Ur Positive(A ) Negative LAB CHEMISTRY METHOD 7:20 PM [facility] Comment:Specimens from patie nts taking pantoprazole sodium (Protonix) have been shown to produce false positive results. Oxycodone Screen, Ur Negative Negative LAB CHEMISTRY METHOD 5 7:20 PM [facility] Fentanyl, Ur Negative Negative LAB CHEMISTRY METHOD 5 7:20 PM [facility] Urine Urine specimen obtained by clean catch procedure / Unknown Non-blood Collection / Unknown 12/31/2024 6:34 PM EST 12/31/2024 6:49 PM EST [facility] - 12/31/2024 7:20 PM EST Assay [...] MD LAB URINE ORDERABLES Final Resul t [facility]) [facility] [address] [place] [address], * Buprenorphine screen, urine (12/31/2024 6:34 PM EST) Buprenorphine Screen Urine Negative Negative LAB CHEMISTRY METHOD 12/31/2024 7:20 PM EST [facility] Urine Urine specimen obtained by clean catch procedure / Unknown Non-blood Collection / Unknown 12/31/2024 6:34 PM EST 12/31/2024 6:49 PM EST Narrative [facility] - 12/31/2024 7:20 PM EST Assay cutoff 5 ng/mL Semi-quantitative assay for screening purposes only. Unconfirmed screening result should not be used for non-medical purposes. *ALTERNATE METHOD CONFIRMATION DONE UPON REQUEST ONLY* us Stefano Thompson MD LAB URINE ORDERABLES Final Resul t Performing Organization Address [facility] de Phone Number [facility] [address] [place] [address], [place] [phone] * Methadone, urine (12/31/2024 6:34 PM EST) Pathologist [facility] Methadone Screen, Urine Negative Negative LAB CHEMISTRY METHOD 12/31/2024 7:20 PM EST [facility] Comment: Assay cutoff 300 ng/mL [...] ORDERABLES Final Resul t Performing Organization Address City/[facility]/ZIP Co de Phone Number [facility] [address] [place] [address], [place] [phone] * (ABNORMAL) CBC auto differential (12/31/2024 6:34 PM EST) [facility] WBC 10.7 4.8 - 10.8 K/[facility] LAB HEMETOLOGY METHOD 12/31/2024 6:53 PM EST [facility] RBC 4.50 3.80 - 4.80 M/mcL LAB HEMETOLOGY METHOD 12/31/2024 6:53 PM [facility] Hemoglobin 13.4 11.5 - 16.0 g/dL LAB HEMETOLOGY METHOD 12/31/2024 6:53 PM [facility] Hematocrit 39.2 35.0 - 47.0 % LAB HEMETOLOGY METHOD 12/31/2024 6:53 PM [facility] MCV 87.1 79.0 - 98.0 FL LAB HEMETOLOGY METHOD 12/31/2024 6:53 PM [facility] MCH 29.8 27.0 - 32.0 pcg LAB HEMETOLOGY METHOD 12/31/2024 6:53 PM [facility] MCHC 34.2 32.0 - 37.0 g/dL LAB HEMETOLOGY METHOD 12/31/2024 6:53 PM [facility] RDW 12.9 11.0 - 15.0 % LAB HEMETOLOGY METHOD 12/31/2024 6:53 PM [facility] Platelets 231 130 - 400 K/mcL LAB HEMETOLOGY METHOD 12/31/2024 6:53 PM [facility] MPV 10.6 7.0 - 11.0 FL LAB HEMETOLOGY METHOD 12/31/2024 6:53 PM [facility] NRBC 0.0 <1.0 % LAB HEMETOLOGY METHOD 12/31/2024 6:53 PM [facility] NRBC Absolute 0.00 <0.10 K/mcL LAB HEMETOLOGY METHOD 12/31/2024 6:53 PM [facility] Neutrophils Relative 75.1 % LAB HEMETOLOGY METHOD 12/31/2024 6:53 PM [facility] Lymphocytes Relative 14.6 % LAB HEMETOLOGY METHOD 12/31/2024 6:53 PM EST [facility] Monocytes Relative 6.0 % LAB HEMETOLOGY METHOD 12/31/2024 6:53 PM [facility] Eosinophils Relative 3.5 % LAB HEMETOLOGY METHOD 12/31/2024 6:53 PM [facility] Basophils Relative 0.5 % LAB HEMETOLOGY METHOD 12/31/2024 6:53 PM [facility] Immature Granulocytes Relative 0.3 % LAB HEMETOLOGY METHOD 12/31/2024 6:53 PM [facility] Neutrophils Absolute 8.02(H) 1.50 - 7.00 K/mcL LAB HEMETOLOGY METHOD 12/31/2024 6:53 PM [facility] Lymphocytes Absolute 1.56 1.00 - 5.00 K/mcL LAB HEMETOLOGY METHOD 12/31/2024 6:53 PM [facility] Monocytes Absolute 0.64 0.20 - 1.00 K/mcL LAB HEMETOLOGY METHOD 12/31/2024 6:53 PM [facility] Eosinophils Absolute 0.37 0.00 - 0.50 K/mcL LAB HEMETOLOGY METHOD 12/31/2024 6:53 PM [facility] Basophils Absolute 0.05 0.00 - 0.20 K/mcL LAB HEMETOLOGY METHOD 12/31/2024 6:53 PM [facility] Immature Granulocytes Absolute 0.03 0.00 - 0.03 K/mcL LAB HEMETOLOGY METHOD 12/31/2024 6:53 PM [facility] Blood Venous blood specimen / Unknown Venipuncture / Unknown 12/31/2024 6:34 PM EST 12/31/2024 6:49 PM EST us Stefano Thompson MD LAB BLOOD ORDERABLES Final Resul t [facility] [address] [place] [address], [place] [phone] * Phencyclidine, urine (12/31/2024 6:34 PM EST) PCP Scrn, Ur Negative Negative LAB CHEMISTRY METHOD 12/31/2024 7:20 PM EST [facility] Comment: Assay cutoff 25 ng/mL [...] ORDERABLES Final Resul t Performing Organization Address [facility]/ZIP Co de Phone Number [facility] [address] [place] [address], [place] [phone] * Ethanol (12/31/2024 6:34 PM EST) Pathologist [facility] Ethanol Level <3 0 - 10 mg/dL LAB CHEMISTRY METHOD 12/31/2024 7:13 PM EST [facility] Blood Venous blood specimen / Unknown Venipuncture / Unknown 12/31/2024 6:34 PM EST 12/31/2024 6:50 PM EST us Stefano Thompson MD LAB BLOOD ORDERABLES Final Resul t [facility] [address] [place] [address], [place] [phone] * (ABNORMAL) Acetaminophen level (12/31/2024 6:34 PM EST) Acetaminophen Level <2.0(L) 10.0 - 30.0 mcg/mL LAB CHEMISTRY METHOD 12/31/2024 7:13 PM EST [facility] Blood Venous blood specimen / Unknown Venipuncture / Unknown 12/31/2024 6:34 PM EST 12/31/2024 6:50 PM EST us Stefano Thompson MD LAB BLOOD ORDERABLES Final Resul t Performing Organization Address [facility]/ZIP Co de Phone Number [facility] [address] [place] [address], [place] [phone] * (ABNORMAL) Salicylate level (12/31/2024 6:34 PM EST) Salicylate Level <1.7(L) 2.0 - 29.0 mg/dL LAB CHEMISTRY METHOD 12/31/2024 7:13 PM EST [facility] Blood Venous blood specimen / Unknown Venipuncture / Unknown 12/31/2024 6:34 PM EST 12/31/2024 6:50 PM EST us Stefano Thompson MD LAB BLOOD ORDERABLES Final Resul t Performing Organization Address [facility]/ZIP Co de Phone Number [facility] [address] [place] [address], [place] [phone] * (ABNORMAL) Comprehensive metabolic panel (12/31/2024 6:34 PM EST) Sodium 137 133 - 145 mmol/L LAB CHEMISTRY METHOD 12/31/2024 7:13 PM [facility] Potassium 3.4(L) 3.5 - 5.5 mmol/L LAB CHEMISTRY METHOD 12/31/2024 7:13 PM [facility] Chloride 103 96 - 110 mmol/L LAB CHEMISTRY METHOD 12/31/2024 7:13 PM [facility] CO2 29 21 - 32 mmol/L LAB CHEMISTRY METHOD 12/31/2024 7:13 PM [facility] Anion Gap 5 3 - 11 LAB CHEMISTRY METHOD 12/31/2024 7:13 PM [facility] Glucose 116(H) 70 - 100 mg/dL LAB CHEMISTRY METHOD 12/31/2024 7:13 PM [facility] BUN 13 5 - 25 mg/dL LAB CHEMISTRY METHOD 12/31/2024 7:13 PM [facility] Creatinine 0.63 0.50 - 1.10 mg/dL LAB CHEMISTRY METHOD 12/31/2024 7:13 PM [facility] eGFR 119 >=60 mL/min/1. 73m2 LAB CHEMISTRY METHOD 12/31/2024 7:13 PM [facility] Comment:Calculation based on the Chronic Kidney Disease Epidemiology Collaboration (CKD-EPI) equation refit without adjustment for race. BUN/Creatinine Ratio 20.6 LAB CHEMISTRY METHOD 12/31/2024 7:13 PM [facility] Calcium 9.3 8.5 - 10.5 mg/dL LAB CHEMISTRY METHOD 12/31/2024 7:13 PM [facility] AST (SGOT) 34 10 - 42 unit/L LAB CHEMISTRY METHOD 12/31/2024 7:13 PM [facility] ALT (SGPT) 104(H) 10 - 60 unit/L LAB CHEMISTRY METHOD 12/31/2024 7:13 PM [facility] Alkaline Phosphatase 122(H) 42 - 121 unit/L LAB CHEMISTRY METHOD 12/31/2024 7:13 PM [facility] Total Protein 6.9 6.0 - 8.0 g/dL LAB CHEMISTRY METHOD 12/31/2024 7:13 PM [facility] Albumin 3.7 3.2 - 5.0 g/dL LAB CHEMISTRY METHOD 12/31/2024 7:13 PM [facility] Total Bilirubin 0.3 0.0 - 1.4 mg/dL LAB CHEMISTRY METHOD 12/31/2024 7:13 PM [facility] Blood Venous blood specimen / Unknown Venipuncture / Unknown 12/31/2024 6:34 PM EST 12/31/2024 6:50 PM EST us Stefano Thompson MD LAB BLOOD ORDERABLES Final Resul t [facility] ([facility]) [facility] [address] [place] [address], [place] [phone] * POC , urine manually resulted (12/31/2024 6:13 PM EST) HCG, Ur POC Negative Negative POC hCG Int QC Pass? Yes Yes Urine Urine specimen obtained by clean catch procedure / Unknown 12/31/2024 6:13 PM EST José Manuel Angel MD POINT OF CARE TEST ENTER/EDIT ORDERABLES Final Result from Last [address] [place] [address] [place] [address] PLAN Care Teams Retail Banker Relationship Specialty Start Date End Date Physician, Pcp Unknown PCP - General 12/31/24
--- OUTSIDE RECORDS SUMMARY | 2025-01-01 18:34 | XMS_ITS | Encounter Summary ---
Author Organization [facility] Initia tive Address [address] [facility], [facility] [address] [place] [address] Phone Care Team Providers Care Booth Operator Name Role Phone Unavailable Primary Care Provider Unavailabl e Reason for Visit * Reason Onset Date Comments FYI 09/22/2024 New Medications Encounter Details Date Type Department Care Team (Late st Contact Info) Description 09/22/2024 Telephone [facility], [place] [address] [facility] [address] [place] [address] Sandra Forte, [facility] [address] [facility] [address] [place] [address] FYI (New Medications) Social History Tobacco Use Types Packs/Day Years [...] PM EDT documented as of this encounter Miscellaneous Notes * Telephone Encounter - Celena Pepe - 09/22/2024 2:41 PM EDT PT called to inform our office that she is taking 4 new medications prescribed by Dr. Deshawn Castellanos from [facility]. 1) Sertraline 50mg 1x / day taken in the morning 2) Naltrexone 50mg 2x / day 1 taken in morning 1 taken at night 3) Hydroxizine 5m Taken as needed 4) Prazosin 1 mg capsule 3x at bedtime documented in this encounter Plan of Treatment Not on file documented as of this encounter Visit Diagnoses Not on filedocumented in this encounter
--- OUTSIDE RECORDS SUMMARY | 2025-01-01 18:34 | XMS_ITS | Encounter Summary ---
Author Organization [facility] Initia tive Address [address] [facility], [facility] [address] [place] [address] Phone Care Team Providers Care Incoming Inspector Name Role Phone Uday Del Rosario DO Primary Care Provider [phone] Reason for Visit * Reason Comments Medication Refill Advice Only Encounter Details Date Type Department Care Team (Late st Contact Info) Description 10/21/[address] [place] [address] Uday Del Rosario DO [address] [facility] [place] [address] [place] [address] Medication Refill; Advice Only Social History Tobacco Use Types Packs/Day Years [...] encounter Miscellaneous Notes * Telephone Encounter - Tiffanie Jamesdro - 10/21/2021 2:22 PM EDT Pt called in stating they sent Yahaira a mychart message about six days ago and needs to further discuss laser hair removal and bottom surgery options ? PT also wants (1) RX Refill of ???finasteride (PROPECIA) 1 mg tablet?? . documented in this encounter Plan of Treatment Not on file documented as of this encounter Visit Diagnoses Diagnosis Endocrine disorder, unspecified- Primary documented in this encounter Care Teams Incoming Inspector Relationship Specialty Start Date End Date Uday Del Rosario DO [address] [address] PCP - General Family Medicine 07/10/23 12/22/23 documented as of this encounter
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
--- OUTSIDE RECORDS SUMMARY | 2025-01-01 18:34 | XMS_ITS | Encounter Summary ---
Author Organization [facility] Initia tive Address [address] [facility], [facility] [address] [place] [id number] Phone Care Team Providers Care Capsule Inspector Name Role Phone Uday Del Rosario DO Primary Care Provider [phone] Reason for Visit * Reason Comments Medication Refill Encounter Details Date Type Department Care Team (Late st Contact Info) Description 11/12/[address] [place] [address] Uday Del Rosario DO [address] [facility] [address] [place] [address] Medication Refill Social History Tobacco [...] unspecified documented in this encounter Care Teams Capsule Inspector Relationship Specialty Start Date End Date Uday Del Rosario DO [address] [place] [address] [place] [address] PCP - General Family Medicine 07/10/23 12/22/23 documented as of this encounter
--- OUTSIDE RECORDS SUMMARY | 2025-01-01 18:34 | XMS_ITS | Encounter Summary ---
Author Organization [facility] Initia tive Address [address] [facility], [facility] [address] [place] [address] Phone Care Team Providers Care Teradata Developer Name Role Phone Unavailable Primary Care Provider Unavailabl e Reason for Visit * Reason Comments Medication Refill Encounter Details Date Type Department Care Team (Late st Contact Info) Description 08/16/2024 Refill [facility] [address] [facility] [address] [place] [address] Sandra Forte, HEEL GUMMER [address] [facility] [address] [place] [address] Medication Refill Social History Tobacco [...]
--- OUTSIDE RECORDS SUMMARY | 2025-01-01 18:34 | XMS_ITS | Encounter Summary ---
Author Organization [facility] Initia tive Address 30 [facility], [facility] [address] [place] [address] Phone Care Team Providers Care Firebrick And Refractory Tile Repairer Name Role Phone Unavailable Primary Care Provider Unavailabl e Reason for Visit * Reason Onset Date Comments Order 06/06/2024 Advice Only 06/06/2024 Encounter Details Date Type Department Care Team (Late st Contact Info) Description 06/06/2024 Telephone [facility] [address] [facility] [address] [place] [address] Sandra Forte, [facility] [address] [facility] [address] [place] [address] Order; Advice Only Social History Tobacco Use Types [...] encounter Miscellaneous Notes * Telephone Encounter - Sulema Hennessy - 06/07/2024 2:30 PM EDT Lab orders faxed to [facility] in [place], [place] * Telephone Encounter - Lana Raygoza - 06/06/2024 3:00 PM EDT Pt called re: [facility] labs. Informed pt of 3 month lab cycle for further refills; pt requested [facility] labsbe faxed to [address] [place] [address] [place], [address], Phone #: [phone], Fax #: [phone]. Pt also had questions re: insurance/transferring care. Pt currently has [place] but is living in [place]. Pt asked for assistance in seeking/applying for [place]-based health insurance/insurance assistance programs, as well as recommendations for [place] healthcare providers to transfer care. documented in this encounter Plan of Treatment Not on file documented as of this encounter Visit Diagnoses Not on filedocumented in this encounter
--- OUTSIDE RECORDS SUMMARY | 2025-01-01 18:34 | XMS_ITS | Encounter Summary ---
Author Organization [facility] Initia tive Address [address] [facility], [facility] [address] [place] [id number] Phone Care Team Providers Care Core Finisher Name Role Phone Uday Del Rosario DO Primary Care Provider [phone] Reason for Visit * Reason Comments Medication Refill Encounter Details Date Type Department Care Team (Late st Contact Info) Description 10/27/[address] [place] [address] Uday Del Rosario DO [address] [facility] [address] [place] [address] Medication Refill Social History Tobacco [...] unspecified documented in this encounter Care Teams Core Finisher Relationship Specialty Start Date End Date Uday Del Rosario DO [address] [place] [address] [place] [address] [place] [address] PCP - General Family Medicine 07/10/23 12/22/23 documented as of this encounter
--- OUTSIDE RECORDS SUMMARY | 2025-01-01 18:34 | XMS_ITS | Encounter Summary ---
Author Organization [facility] Initia tive Address [address] [facility] 16 [place] [address] Phone Care Team Providers Care Rare/Endangered Species Specialist Name Role Phone Uday Del Rosario DO Primary Care Provider [phone] Reason for Visit * Reason Comments Medication Refill Encounter Details Date Type Department Care Team (Late st Contact Info) Description 07/11/[address] [place] [address] [place] [address] [place] [address] [address] [place] [address] Medication Refill Social History Tobacco [...] on filedocumented in this encounter Care Teams Rare/Endangered Species Specialist Relationship Specialty Start Date End Date Uday Del Rosario DO [address] [facility] 290 [place] [phone] PCP - General Family Medicine 07/10/23 12/22/23 documented as of this encounter
--- OUTSIDE RECORDS SUMMARY | 2025-01-01 18:34 | XMS_ITS | Encounter Summary ---
Author Organization [facility] Initia tive Address [address] [facility], [facility] 16 [place] [id number] Phone Care Team Providers Care Business Planning Director Name Role Phone Uday Del Rosario DO Primary Care Provider [phone] Reason for Visit * Reason Comments Medication Refill Encounter Details Date Type Department Care Team (Late st Contact Info) Description 04/12/[address] [place] [address] Uday Del Rosario DO [address] [facility] 290 [place] [address] Medication Refill Social History Tobacco [...] on filedocumented in this encounter Care Teams Business Planning Director Relationship Specialty Start Date End Date Uday Del Rosario DO [address] [facility] 290 [place] [phone] PCP - General Family Medicine 07/10/23 12/22/23 documented as of this encounter
--- OUTSIDE RECORDS SUMMARY | 2025-01-01 18:34 | XMS_ITS | Encounter Summary ---
Author Organization [facility] Initia tive Address [address], [place] [id number] Phone Care Team Providers Care Director Of Analytical Development Name Role Phone CarinUday DO Primary Care Provider [phone] Reason for Visit * Reason Comments Appointment FYI Encounter Details Date Type Department Care Team ([facility] st Contact Info) Description 12/25/2021 Telephone [place] [phone] Jessica Vargas APRN [address] [place] [address] [place] [address] Appointment; FYI Social History Tobacco Use Types Packs/Day Years [...] encounter Miscellaneous Notes * Telephone Encounter - Kandi Anna - 12/25/2021 2:00 PM EDT LVM for PT to call and schedule f/u appt documented in this encounter Plan of Treatment Not on file documented as of this encounter Visit Diagnoses Not on filedocumented in this encounter Care Teams Director Of Analytical Development Relationship Specialty Start Date End Date Uday Del Rosario DO [address] [phone] PCP - General Family Medicine 07/10/23 12/22/23 documented as of this encounter
--- OUTSIDE RECORDS SUMMARY | 2025-01-01 18:34 | XMS_ITS | Encounter Summary ---
Author Organization [facility] Initia tive Address [address] [facility], [facility] 16 [place] [id number] Phone Care Team Providers Care Phlebotomist Supervisor/Instructor Name Role Phone Unavailable Primary Care Provider Unavailabl e Reason for Visit * Reason Onset Date Comments Other 01/29/2024 Encounter Details Date Type Department Care Team (Late st Contact Info) Description 01/29/2024 Telephone [facility] [address] [facility] 290 [place] [address] Candelaria Waterman, FORMING MACHINE OPERATOR [address] [facility] 290 [place] [address] Other Social History Tobacco Use Types Packs/Day Years [...] encounter Miscellaneous Notes * Telephone Encounter - Jarrell Tovar - 01/29/2024 4:46 PM EST Pt called to say [facility] come to her house to drop off medication and didn't attempt to even let the ptknow they were there. Pt says they left a note on her door to let her know the medication would return to pharmacy. documented in this encounter Plan of Treatment Not on file documented as of this encounter Visit Diagnoses Not on filedocumented in this encounter
[2025-01-01 20:00] VITALS: BP 109/69; PULSE 79; RESP 16; TEMP 37; O2SAT 98
[2025-01-01 20:27] VITALS: BMI 33.7
--- NOTE | 2025-01-02 00:25 | PC.ADMIT ---
Pt ia 54yo male to female transgender, admitted on a CV from [facility] for treatment of MDD. Per crisis assessment, Pt has HX of depression, coming in from [facility]. She reports to have discharged herself from [facility] recently, because the environment was not healthy. Pt wants inpatient unit that will let her keep her personal items such as makeup. Patient reports that depressive symptoms started back in September 08 when her fiance left her; Pt started to drink. Pt reports last drink was September 08 2024. Pt reports possible cannabis use in the last few months. She reports smoking cigarettes. Per unit assessment, Pt is A&Ox4, calm and cooperative with admission procedure. She was tearful, states I have been depressed and having increased anxiety . I left [facility] and I am homeless now . Pt denies SI/HI/AV/VH. Skin/safety check was unremarkable, v/s, weight and height documented. Allergies and Med rec done. Pt signed/filled some releases, statement of understandings, my contact list and menu. Treatment plans and safety tools initiated but yet to be signed. Hospitalist contacted for consultation. Pt is on 15 safety check.
[2025-01-02 07:41] VITALS: BP 138/71; PULSE 66; RESP 20; TEMP 36.2; O2SAT 99
[2025-01-02 08:07] LABS: Hemoglobin A1C 93.6259 umol/L; Total Hemoglobin (HGBA1C) 2431.8357 umol/L
[2025-01-02 08:20] LABS: Alanine Aminotransferase 91 U/L (0-31); Albumin Level 4.3 g/dL (3.5-5.0); Alkaline Phosphatase 112 U/L (39-117); Anion Gap 11 (12-20); Aspartate Amino Transferase 36 U/L (5-31); Blood Urea Nitrogen 13 mg/dL (9-16); Calcium 9.2 mg/dL (8.4-10.2); Carbon Dioxide 26 mmol/L (22-29); Chloride 106 mmol/L (96-108); Cholesterol 209 mg/dL (<200); Creatinine Clr Calc Pharmacy 144.8; Estimated Glomerular Filt Rate > 60; HDL Cholesterol 64 mg/dL (>40); Magnesium 2.1 mg/dL (1.6-2.6); Potassium 4.2 mmol/L (3.3-5.1); Sodium 139 mmol/L (135-145); Total Protein 7.2 g/dL (6.5-8.0); Triglycerides 95 mg/dL (<150)
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
[2025-01-02 08:36] LABS: Free T4 (Free Thyroxine) 1.03 ng/dL (0.71-1.85); Thyroid Stimulating Hormone 0.92 uIU/mL (0.32-4.0)
[2025-01-02 08:49] LABS: Folate 9.8 ng/mL (> or = 4.0); Vitamin B12 1123 pg/mL (200-900)
--- NOTE | 2025-01-02 09:25 | HO.PSYADMNOT ---
HPI Date of Service: 01/02/25 Chief Complaint: SI, Section 12 Sources of Information: patient interviewed, chart reviewed and crisis/core team assessment reviewed HPI Subjective Notes: Conditional Voluntary Narrative: Ms. Ng is a 34 yo trans F with h/o depression, PTSD, ETOH use d/o, and multiple inpatient psychiatric admissions who presented to the [facility] ED from [facility] and reported SI. She was transferred to [facility] for tx of depression and SI. Pt reports I was at a long-term care residential program, [facility] . She liked most aspects of the program since she could have access to her personal belongings s/a make-up but she decided to leave because every patient was combative (verbally). She left the program after 10 days, ran some errands and then presented to [facility] ED to try to get into another long-term program 'without patients fighting and compulsively mismanaged medications. I've been doing this dance since August with institutions . She reports that she had been drinking 3 handles of whiskey daily x 12 yrs prior to that. Her last drink was 09/07/24. Pt reports that her depressed mood is a/w hopelessness, emptiness, annihilation, sadness, bewilderment, surrender and anger . When asked about SI, she reported I feel like everyone is driving me to suicide but denies current SI or thoughts of non-suicidal self-harm. Psychiatric ROS: -Pt endorses a significant h/o trauma, issues with anger, difficulty trusting others ( 99% of humans are vile and disgusting ), occasional dissociative episodes. -Denies h/o psychosis -Denies h/o violence Current Psychotropic Med Regimen: Sertraline 200 mg qd (off x 3 days, denies significant benefit since starting it in August 2024) clonidine 0.1 mg bid- helps w/ sleep prazosin 1 mg qhs hydroxyzine 25 mg tid prn for anxiety Pt would like to try Abilify since previous antidepressant trials have not been effective. Past Psychiatric History: Unclear if pt has any established outpatient providers currently. She states that she's seen multiple providers lately Reports h/o multiple inpt psychiatric admissions Reports h/o suicide attempt by cutting wrist w/ a pairing knife, overdosing on Benadryl and [place]( [place] her). Denies h/o violence Prior Med Trials- previously took sertraline prior to re-starting in August. Didn't help. Can't recall other med trials Medical Evaluation Reviewed: Yes [facility] Narrative: trans F, on hormonal tx Family History: Pt thinks dad has some sort of mental health issue Social History: Currently homeless. Had lived w/ a friend and her dad till Nov. Unable to return there Raised in [place]. Moved from [facility] to [place] in April 2024. Single, no children No relationship w/ family. Has 1 sister. Per Crisis assessment- pt's mom when pt was 21 and her father kicked her out of the house Substance History: h/o ETOH use d/o-- last use August 2024. Smokes cigarettes/day- states she recently took up smoking for her health Occas. MJ use- last used over the summer 2024 Diagnostics Vital Signs (24Hr): Vital Signs - 24 hr 01/01/25 20:00 01/02/25 07:41 Temperature 98.6 F 97.2 F Pulse Rate 79 66 Respiratory Rate 16 20 Blood Pressure 109/69 138/71 Pulse Oximetry 98 99 Oxygen Delivery Method Room Air Room Air BMI result Body Mass Index 33.7 Labs 01/02/25 07:49 Labs: Laboratory Results - last 48 hr 01/02/25 07:49 Sodium 139 Potassium 4.2 Chloride 106 Carbon Dioxide 26 Anion Gap 11 L BUN 13 Creatinine 0.65 Estim Creat Clear Calc 144.8 Estimated GFR > 60 Random Glucose 95 Estimat Average Glucose 117 Hemoglobin A1c % 5.7 Calcium 9.2 Magnesium 2.1 Total Bilirubin 0.4 AST 36 H ALT 91 H Alkaline Phosphatase 112 Total Protein 7.2 Albumin 4.3 Triglycerides 95 Cholesterol 209 H LDL Cholesterol, Calc 126 H HDL Cholesterol 64 Vitamin B12 1123 H Folate 9.8 TSH 0.92 Free T4 1.03 Meds/Allergies Meds Home Medications ?Medication ?Instructions ?Recorded ?Confirmed ?Type clonidine HCl 0.1 mg tablet 0.1 mg PO BID PRN anxiety 01/01/25 01/01/25 History estradiol 2 mg tablet 2 mg PO TID 01/01/25 01/01/25 History gabapentin 600 mg tablet 600 mg PO TID 01/01/25 01/01/25 History melatonin 10 mg tablet 10 mg PO BEDTIME PRN insomnia 01/01/25 01/01/25 History prazosin 1 mg capsule 1 mg PO BEDTIME 01/01/25 01/01/25 History sertraline 50 mg tablet 50 mg PO DAILY 01/01/25 01/01/25 History Allergies Allergies Allergy/AdvReac Type Severity Reaction Status Date / Time No Known Allergies Allergy Verified 01/01/25 18:44 Mental Status Exam Mental Status Exam Narrative: Appearance: Casually dressed in all black. Was wearing ear plugs in the hallway prior to interview. Grooming/hygiene wnl. Intermittent eye contact Attitude:Cooperative Speech: Fluent and wnl in regard to volume, tone, prosody Motor activity: Calm and without any tics, tremors or dyskinesias. Steady gait Mood: as noted above Affect: irritable, constricted Thought process: generally goal directed Thought content: help seeking/rejecting, focused on negative experiences w/ MH tx. Denies current SI or violent ideation Perception: Denies AH/VH and does not appear to respond to internal stimuli Alert/oriented in all spheres Cognition grossly intact Insight: fair Judgment: fair Assessment & Plan Assessment & Plan (1) Depressive disorder: Status: Acute Code(s): F32.A - Depression, unspecified (2) Posttraumatic stress disorder: Status: Acute Code(s): F43.10 - Post-traumatic stress disorder, unspecified (3) Alcohol use disorder: Status: Acute Code(s): F10.90 - Alcohol use, unspecified, uncomplicated Assessment and Plan: Also- Borderline personality traits Plan Ms. Ng is a 34 yo trans F with h/o depression, PTSD, ETOH use d/o, and multiple inpatient psychiatric admissions who presented to the [facility] ED from [facility] and reported SI. She was transferred to [facility] for tx of depression and SI. Pt currently denies SI. She is hoping to get referred to another residential program where she can have her belongings, including her makeup, and is upset that she can't have access to these belongings on M3. She expresses dissatisfaction about being admitted here but notes that she is homeless. She does request to try Abilify for tx of depression since other med trials, including sertraline up to 200 mg since August 2024 haven't been effective. Plan: Admitted to [facility] for safety and stabilization Legal Status: CV 15 min safety checks [facility] Medical H&P completed by hospitalist. Meds- Sertraline- started at 150 mg qd (reportedly took 200 mg up to 3 days ago but doesn't want to continue it 2/2 lack of efficacy) continue clonidine 0.1 mg bid, prazosin 1 mg qhs, Vistaril prn for anxiety (home meds) Trazodone prn ordered for tx of insomnia -Start Abilify 2 mg qd for tx of depression Continue home meds for hormonal tx Patient educated on: medication risk/benefits and therapeutic strategies Informed Consent: understands Reason for continued inpatient stay Substantial Risk for: med/psych decompensation Statement Statement: I have reviewed the history and physical and performed a pertinent examination on my patient. No changes have occurred unless specified. If the History and Physical was not performed prior to admission, the Hospitalist's service will be consulted for completing the admission physical. Time Spent With Patient Time: Total time managing care of this patient today __90__ minutes.
--- NOTE | 2025-01-02 09:31 | PC.NURSE ---
01/02/25 pt declined flu shot
[2025-01-02 11:06] VITALS: BP 119/71
[2025-01-02] MEDS: FINASTERIDE 1 MG 1 EACH PO (14:07)
[2025-01-02 17:02] VITALS: BP 134/86; PULSE 72; O2SAT 98
[2025-01-02 20:00] VITALS: BP 113/64; PULSE 86; RESP 16; TEMP 36; O2SAT 97
[2025-01-03 07:53] VITALS: BP 127/71; PULSE 60; RESP 18; TEMP 36.1; O2SAT 98
[2025-01-03] MEDS: FINASTERIDE 1 MG 1 EACH PO (08:16)
[2025-01-03 15:28] VITALS: BP 131/68
--- NOTE | 2025-01-03 19:18 | HO.PSYCHPN ---
Subjective Subjective Date of Service: 01/03/25 Reason For Visit: SI, Section 12 Subjective Notes: 3 Day Interim History: Chart reviewed, case discussed in team Pt signed a 3 day note yesterday, which will on 01/06 (due to holiday today). Pt reports that she's feeling better since SW referred her to other [facility] programs. She has also been in touch w/ a friend that she met from [email or web address] who is working with their family to try to get pt to [place], where they live. Pt reports that she's randomly ended up in the [place] 2 other times after moving in w/ people that she met thru [place]. She had lived w/ her friend and friend's father in [place], which went well but she reports everything fell apart after she moved with them to [place]. Her fiance had also broken up with her over the summer and she started drinking ETOH again. She reports that she had been working and living in her own apartment in [facility] and feels optimistic about her future if she has some sort of support. Pt denies SI/violent ideation, AHVH She is tolerating the Abilify 2mg and denies any SE Mental Status Exam Mental Status Exam Narrative: Appearance: Casually dressed in all black, face mask. Grooming/hygiene wnl. good eye contact Attitude:Cooperative Speech: Fluent and wnl in regard to volume, tone, prosody Motor activity: Calm and without any tics, tremors or dyskinesias. Steady gait Mood: better Affect: appropriate, reactive, brighter Thought process: generally goal directed Thought content: less negative today, future oriented. Denies SI Perception: Denies AH/VH and does not appear to respond to internal stimuli Alert/oriented in all spheres Cognition grossly intact Insight: fair Judgment: fair Diagnostics Vital Signs (24Hr): Vital Signs - 24 hr 01/02/25 20:00 01/03/25 07:53 01/03/25 15:28 Temperature 96.8 F 97.0 F Pulse Rate 86 60 Respiratory Rate 16 18 Blood Pressure 113/64 127/71 131/68 Pulse Oximetry 97 98 Oxygen Delivery Method Room Air Room Air BMI result Body Mass Index 33.7 Labs 01/02/25 07:49 Labs: Laboratory Results - last 48 hr 01/02/25 07:49 Sodium 139 Potassium 4.2 Chloride 106 Carbon Dioxide 26 Anion Gap 11 L BUN 13 Creatinine 0.65 Estim Creat Clear Calc 144.8 Estimated GFR > 60 Random Glucose 95 Estimat Average Glucose 117 Hemoglobin A1c % 5.7 Calcium 9.2 Magnesium 2.1 Total Bilirubin 0.4 AST 36 H ALT 91 H Alkaline Phosphatase 112 Total Protein 7.2 Albumin 4.3 Triglycerides 95 Cholesterol 209 H LDL Cholesterol, Calc 126 H HDL Cholesterol 64 Vitamin B12 1123 H Folate 9.8 TSH 0.92 Free T4 1.03 Medications Medications Current Medications Acetaminophen (Acetaminophen 325 Mg Tablet) 650 mg PO Q6H PRN PRN Reason: Headache/Pain, Scale 1-10 Al Hydroxide/Mg Hydroxide (Magnesium Hydrox/Alum Hydrox 30 Ml Oral.Susp) 30 ml PO Q6H PRN PRN Reason: Heartburn/Nausea Aripiprazole (Aripiprazole 2 Mg Tablet) 2 mg PO DAILY [facility] Last Admin: 01/03/25 08:17 Dose: 2 mg Bicalutamide (Bicalutamide 50 Mg Tablet) 50 mg PO DAILY [facility] Last Admin: 01/03/25 08:17 Dose: 50 mg Clonidine HCl (Clonidine Hcl 0.1 Mg Tablet) 0.1 mg PO BID [facility]; Protocol Last Admin: 01/03/25 08:18 Dose: 0.1 mg Clonidine HCl (Clonidine Hcl 0.1 Mg Tablet) 0.1 mg PO BID PRN; Protocol PRN Reason: Severe anxiety Last Admin: 01/03/25 15:28 Dose: 0.1 mg Estradiol (Estradiol 0.5 Mg Tablet) 2 mg PO TID [facility] Last Admin: 01/03/25 15:23 Dose: 2 mg Hydroxyzine HCl (Hydroxyzine Hcl 25 Mg Tablet) 25 mg PO Q6H PRN PRN Reason: mild anxiety Last Admin: 01/01/25 20:54 Dose: 25 mg Magnesium Hydroxide (Milk Of Magnesia 30 Ml Oral.Susp) 30 ml PO DAILY PRN PRN Reason: Constipation Melatonin (Melatonin 3 Mg Tablet) 9 mg PO BEDTIME [facility] Last Admin: 01/02/25 20:05 Dose: 9 mg Nicotine (Nicotine 21 Mg Patch.Td24) 21 mg TRANSDERMA DAILY PRN PRN Reason: nicotine craving Nicotine Polacrilex (Nicotine Polacrilex 2 Mg Gum) 2 mg BUCCAL Q2H PRN PRN Reason: Nicotine Cravings Pt Own Med ( (Finasteride 1mg)) 1 each PO DAILY [facility] Last Admin: 01/03/25 08:16 Dose: 1 each Olanzapine (Olanzapine 5 Mg Tablet) 5 mg PO BID PRN PRN Reason: agitation Prazosin HCl (Prazosin Hcl 1 Mg Capsule) 1 mg PO BEDTIME [facility]; Protocol Last Admin: 01/02/25 20:06 Dose: 1 mg Pyridoxine HCl (Pyridoxine Hcl (Vitamin B6) 50 Mg Tablet) 50 mg PO DAILY [facility] Last Admin: 01/03/25 08:18 Dose: 50 mg Sertraline HCl (Sertraline Hcl 50 Mg Tablet) 150 mg PO DAILY [facility] Last Admin: 01/03/25 08:18 Dose: 150 mg Trazodone HCl (Trazodone Hcl 50 Mg Tablet) 50 mg PO BEDTIME MRX1 PRN PRN Reason: Insomnia Last Admin: 01/01/25 20:53 Dose: 50 mg Vitamin D (Cholecalciferol (Vitamin D3) 25 Mcg Tablet) 25 mcg PO DAILY [facility] Last Admin: 01/03/25 08:18 Dose: 25 mcg Allergies Allergies Allergy/AdvReac Type Severity Reaction Status Date / Time No Known Allergies Allergy Verified 01/01/25 18:44 Assessment & Plan Assessment & Plan (1) Depressive disorder: Status: Acute Code(s): F32.A - Depression, unspecified (2) Posttraumatic stress disorder: Status: Acute Code(s): F43.10 - Post-traumatic stress disorder, unspecified (3) Alcohol use disorder: Status: Acute Code(s): F10.90 - Alcohol use, unspecified, uncomplicated Assessment and Plan: Also- Borderline personality traits Plan Ms. Ng is a 34 yo trans F with h/o depression, PTSD, ETOH use d/o, and multiple inpatient psychiatric admissions who [facility] and reported SI. She was transferred to [facility] M[facility] for tx of depression and SI. Pt currently denies SI. She is hoping to get referred to another residential program where she can have her belongings, including her makeup, and is upset that she can't have access to these belongings on M3. She expresses dissatisfaction about being admitted here but notes that she is homeless. She does request to try Abilify for tx of depression since other med trials, including sertraline up to 200 mg since August 2024 haven't been effective. Plan: Admitted to M3 for safety and stabilization Legal Status: CV 15 min safety checks [facility] therapy Medical H&P completed by hospitalist. Meds- Sertraline- started at 150 mg qd (reportedly took 200 mg up to 3 days ago but doesn't want to continue it 2/2 lack of efficacy) continue clonidine 0.1 mg bid, prazosin 1 mg qhs, Vistaril prn for anxiety (home meds) Trazodone prn ordered for tx of insomnia -Start Abilify 2 mg qd for tx of depression Continue home meds for hormonal tx 01/03: Mood has improved since pt has been referred to [facility] and as a back-up, she states that she could go to [place] to live w/ her friend. She signed a 3-day, which will on Thursday, 01/06. Continue current tx plan for now. Reason for continued inpatient stay Substantial Risk for: med/psych decompensation Time Spent With Patient Time: Total time managing care of this patient today ____ minutes.
[2025-01-03 20:00] VITALS: BP 116/70; PULSE 65; RESP 16; TEMP 36.2; O2SAT 99
[2025-01-03 20:40] VITALS: BP 110/75
[2025-01-03 20:41] VITALS: BP 110/75
[2025-01-04 08:00] VITALS: BP 122/65; PULSE 70; RESP 18; TEMP 36.2; O2SAT 97
[2025-01-04] MEDS: FINASTERIDE 1 MG 1 EACH PO (08:49)
--- NOTE | 2025-01-04 09:34 | P.PNPSI_ITS ---
Subjective Subjective Date of Service: 01/11/25 Reason For Visit: SI, Section 12 Interim History: Chart reviewed. Case discussed in tx team. t/w met w/ pt in her room along with SW and [employer] student. Pt reports feeling 'okay' but her stomach is in knots. She's been anxious about the situation she got herself into w/ the program. SW informed her that she referred her to [facility] and someone will f/u with her to schedule an interview. Pt is also agreeable to a respite. Pt denies SI. Endorses poor sleep due to the environment. She wants to continue her current med regimen for now Visible in milieu Mental Status Exam Mental Status Exam Narrative: Appearance: Casually dressed, wearing face mask. Grooming/hygiene wnl. good eye contact Attitude:Cooperative Speech: Fluent and wnl in regard to volume, tone, prosody Motor activity: Calm and without any tics, tremors or dyskinesias. Steady gait Mood: okay Affect: appropriate, reactive, brighter Thought process: generally goal directed Thought content: future oriented. Denies SI Perception: Denies AH/VH and does not appear to respond to internal stimuli Alert/oriented in all spheres Cognition grossly intact Insight: fair Judgment: fair Diagnostics Vital Signs (24Hr): Vital Signs - 24 hr 01/03/25 15:28 01/03/25 20:00 01/03/25 20:40 Temperature 97.2 F Pulse Rate 65 Respiratory Rate 16 Blood Pressure 131/68 116/70 110/75 Pulse Oximetry 99 Oxygen Delivery Method Room Air 01/03/25 20:41 01/04/25 08:00 Temperature 97.2 F Pulse Rate 70 Respiratory Rate 18 Blood Pressure 110/75 122/65 Pulse Oximetry 97 Oxygen Delivery Method Room Air BMI result Body Mass Index 33.7 Labs 01/02/25 07:49 Medications Medications Current Medications Acetaminophen (Acetaminophen 325 Mg Tablet) 650 mg PO Q6H PRN PRN Reason: Headache/Pain, Scale 1-10 Al Hydroxide/Mg Hydroxide (Magnesium Hydrox/Alum Hydrox 30 Ml Oral.Susp) 30 ml PO Q6H PRN PRN Reason: Heartburn/Nausea Aripiprazole (Aripiprazole 2 Mg Tablet) 2 mg PO DAILY [facility] Last Admin: 01/04/25 08:50 Dose: 2 mg Bicalutamide (Bicalutamide 50 Mg Tablet) 50 mg PO DAILY [facility] Last Admin: 01/04/25 08:49 Dose: 50 mg Clonidine HCl (Clonidine Hcl 0.1 Mg Tablet) 0.1 mg PO BID [facility]; Protocol Last Admin: 01/04/25 08:50 Dose: 0.1 mg Clonidine HCl (Clonidine Hcl 0.1 Mg Tablet) 0.1 mg PO BID PRN; Protocol PRN Reason: Severe anxiety Last Admin: 01/03/25 15:28 Dose: 0.1 mg Estradiol (Estradiol 0.5 Mg Tablet) 2 mg PO TID [facility] Last Admin: 01/04/25 08:50 Dose: 2 mg Hydroxyzine HCl (Hydroxyzine Hcl 25 Mg Tablet) 25 mg PO Q6H PRN PRN Reason: mild anxiety Last Admin: 01/01/25 20:54 Dose: 25 mg Magnesium Hydroxide (Milk Of Magnesia 30 Ml Oral.Susp) 30 ml PO DAILY PRN PRN Reason: Constipation Melatonin (Melatonin 3 Mg Tablet) 9 mg PO BEDTIME [facility] Last Admin: 01/03/25 20:42 Dose: 9 mg Nicotine (Nicotine 21 Mg Patch.Td24) 21 mg TRANSDERMA DAILY PRN PRN Reason: nicotine craving Nicotine Polacrilex (Nicotine Polacrilex 2 Mg Gum) 2 mg BUCCAL Q2H PRN PRN Reason: Nicotine Cravings Last Admin: 01/03/25 21:34 Dose: 2 mg Pt Own Med ( (Finasteride 1mg)) 1 each PO DAILY [facility] Last Admin: 01/04/25 08:49 Dose: 1 each Olanzapine (Olanzapine 5 Mg Tablet) 5 mg PO BID PRN PRN Reason: agitation Prazosin HCl (Prazosin Hcl 1 Mg Capsule) 1 mg PO BEDTIME [facility]; Protocol Last Admin: 01/03/25 20:40 Dose: 1 mg Pyridoxine HCl (Pyridoxine Hcl (Vitamin B6) 50 Mg Tablet) 50 mg PO DAILY [facility] Last Admin: 01/04/25 08:50 Dose: 50 mg Sertraline HCl (Sertraline Hcl 50 Mg Tablet) 150 mg PO DAILY [facility] Last Admin: 01/04/25 08:50 Dose: 150 mg Trazodone HCl (Trazodone Hcl 50 Mg Tablet) 50 mg PO BEDTIME MRX1 PRN PRN Reason: Insomnia Last Admin: 01/03/25 20:40 Dose: 50 mg Vitamin D (Cholecalciferol (Vitamin D3) 25 Mcg Tablet) 25 mcg PO DAILY [facility] Last Admin: 01/04/25 08:50 Dose: 25 mcg Allergies Allergies Allergy/AdvReac Type Severity Reaction Status Date / Time No Known Allergies Allergy Verified 01/01/25 18:44 Assessment & Plan Assessment & Plan (1) Depressive disorder: Status: Acute Code(s): F32.A - Depression, unspecified (2) Posttraumatic stress disorder: Status: Acute Code(s): F43.10 - Post-traumatic stress disorder, unspecified (3) Alcohol use disorder: Status: Acute Code(s): F10.90 - Alcohol use, unspecified, uncomplicated Assessment and Plan: Also- Borderline personality traits Plan Ms. Ng is a 34 yo trans F with h/o depression, PTSD, ETOH use d/o, and multiple inpatient psychiatric admissions who presented to the [facility] ED from [facility] and reported SI. She was transferred to [facility] for tx of depression and SI. Pt currently denies SI. She is hoping to get referred to another residential program where she can have her belongings, including her makeup, and is upset that she can't have access to these belongings on M3. She expresses dissatisfaction about being admitted here but notes that she is homeless. She does request to try Abilify for tx of depression since other med trials, including sertraline up to 200 mg since August 2024 haven't been effective. Plan: Admitted to for safety and stabilization Legal Status: CV 15 min safety checks [facility] Medical H&P completed by hospitalist. Meds- Sertraline- started at 150 mg qd (reportedly took 200 mg up to 3 days ago but doesn't want to continue it 2/2 lack of efficacy) continue clonidine 0.1 mg bid, prazosin 1 mg qhs, Vistaril prn for anxiety (home meds) Trazodone prn ordered for tx of insomnia -Start Abilify 2 mg qd for tx of depression Continue home meds for hormonal tx 01/03: Mood has improved since pt has been referred to [facility] and as a back-up, she states that she could go to [place] to live w/ her friend. She signed a 3-day, which will on Thursday, 01/06. Continue current tx plan for now. 01/04: Pt has been referred to [facility] and SW will refer to respite. Pt's mood has improved due to milieu therapy/support received. Will continue current tx plan. Will likely d/c Saturday 01/06 Reason for continued inpatient stay Substantial Risk for: med/psych decompensation Time Spent With Patient Time: Total time managing care of this patient today ____ minutes.
[2025-01-04 21:38] VITALS: BP 113/68; PULSE 67; RESP 16; O2SAT 97
[2025-01-05 07:00] VITALS: BMI 33.5
[2025-01-05 09:15] VITALS: BP 133/92; PULSE 58; RESP 16; TEMP 36.7; O2SAT 98
[2025-01-05 09:25] VITALS: BP 133/72
[2025-01-05] MEDS: FINASTERIDE 1 MG 1 EACH PO (09:29)
--- NOTE | 2025-01-05 16:28 | P.PNPSI_ITS ---
Subjective Subjective Date of Service: 01/05/25 Reason For Visit: SI, Section 12 Subjective Notes: 3 Day Interim History: Chart reviewed, case discussed with team Met w/ pt in the dining area. She reported feeling better overall. She completed an interview w/ [facility] but turned out to be the same program she was at before. She reports that she's willing to go back there or any other respite or program to hold her over till she is able to get to her friend in [place]. She wants to be d/c'd tomorrow even if she can't get into a program, as she states that having freedom and access to her belonging (even if she goes to a care home) is is more important than security. She realizes this is not an ideal plan for the long- term and looks forward to having stability in her life. She denies SI. Denies med SE. Wants to continue current med regimen Medication Compliance: Yes Side effects from medications: No Mental Status Exam Mental Status Exam Narrative: Appearance: Casually dressed in black flower dress with black shirt over it. wearing face mask. Grooming/hygiene wnl. good eye contact Attitude: Cooperative Speech: Fluent and wnl in regard to volume, tone, prosody Motor activity: Calm and without any tics, tremors or dyskinesias. Steady gait Mood: okay Affect: appropriate, reactive, generally bright Thought process: goal directed Thought content: future oriented. Denies SI Perception: Denies AH/VH and does not appear to respond to internal stimuli Alert/oriented in all spheres Cognition grossly intact Insight: good Judgment: fair Diagnostics Vital Signs (24Hr): Vital Signs - 24 hr 01/04/25 21:38 01/05/25 09:15 01/05/25 09:25 Temperature 98.1 F Pulse Rate 67 58 Respiratory Rate 16 16 Blood Pressure 113/68 133/92 H 133/72 Pulse Oximetry 97 98 Oxygen Delivery Method Room Air Room Air BMI result Body Mass Index 33.5 Labs 01/02/25 07:49 Medications Medications Current Medications Acetaminophen (Acetaminophen 325 Mg Tablet) 650 mg PO Q6H PRN PRN Reason: Headache/Pain, Scale 1-10 Al Hydroxide/Mg Hydroxide (Magnesium Hydrox/Alum Hydrox 30 Ml Oral.Susp) 30 ml PO Q6H PRN PRN Reason: Heartburn/Nausea Aripiprazole (Aripiprazole 2 Mg Tablet) 2 mg PO DAILY [facility] Last Admin: 01/05/25 09:25 Dose: 2 mg Bicalutamide (Bicalutamide 50 Mg Tablet) 50 mg PO DAILY [facility] Last Admin: 01/05/25 09:25 Dose: 50 mg Clonidine HCl (Clonidine Hcl 0.1 Mg Tablet) 0.1 mg PO BID [facility]; Protocol Last Admin: 01/05/25 09:25 Dose: 0.1 mg Clonidine HCl (Clonidine Hcl 0.1 Mg Tablet) 0.1 mg PO BID PRN; Protocol PRN Reason: Severe anxiety Last Admin: 01/03/25 15:28 Dose: 0.1 mg Estradiol (Estradiol 0.5 Mg Tablet) 2 mg PO TID [facility] Last Admin: 01/05/25 14:47 Dose: 2 mg Hydroxyzine HCl (Hydroxyzine Hcl 25 Mg Tablet) 25 mg PO Q6H PRN PRN Reason: mild anxiety Last Admin: 01/05/25 14:47 Dose: 25 mg Magnesium Hydroxide (Milk Of Magnesia 30 Ml Oral.Susp) 30 ml PO DAILY PRN PRN Reason: Constipation Melatonin (Melatonin 3 Mg Tablet) 9 mg PO BEDTIME [facility] Last Admin: 01/04/25 21:43 Dose: 9 mg Nicotine (Nicotine 21 Mg Patch.Td24) 21 mg TRANSDERMA DAILY PRN PRN Reason: nicotine craving Nicotine Polacrilex (Nicotine Polacrilex 2 Mg Gum) 2 mg BUCCAL Q2H PRN PRN Reason: Nicotine Cravings Last Admin: 01/03/25 21:34 Dose: 2 mg Pt Own Med ( (Finasteride 1mg)) 1 each PO DAILY [facility] Last Admin: 01/05/25 09:29 Dose: 1 each Olanzapine (Olanzapine 5 Mg Tablet) 5 mg PO BID PRN PRN Reason: agitation Prazosin HCl (Prazosin Hcl 1 Mg Capsule) 1 mg PO BEDTIME [facility]; Protocol Last Admin: 01/04/25 21:43 Dose: 1 mg Pyridoxine HCl (Pyridoxine Hcl (Vitamin B6) 50 Mg Tablet) 50 mg PO DAILY [facility] Last Admin: 01/05/25 09:25 Dose: 50 mg Sertraline HCl (Sertraline Hcl 50 Mg Tablet) 150 mg PO DAILY [facility] Last Admin: 01/05/25 09:25 Dose: 150 mg Trazodone HCl (Trazodone Hcl 50 Mg Tablet) 50 mg PO BEDTIME MRX1 PRN PRN Reason: Insomnia Last Admin: 01/04/25 21:43 Dose: 50 mg Vitamin D (Cholecalciferol (Vitamin D3) 25 Mcg Tablet) 25 mcg PO DAILY [facility] Last Admin: 01/05/25 09:25 Dose: 25 mcg Allergies Allergies Allergy/AdvReac Type Severity Reaction Status Date / Time No Known Allergies Allergy Verified 01/01/25 18:44 Assessment & Plan Assessment & Plan (1) Depressive disorder: Status: Acute Code(s): F32.A - Depression, unspecified (2) Posttraumatic stress disorder: Status: Acute Code(s): F43.10 - Post-traumatic stress disorder, unspecified (3) Alcohol use disorder: Status: Acute Code(s): F10.90 - Alcohol use, unspecified, uncomplicated Assessment and Plan: Also- Borderline personality traits Plan Ms. Ng is a 34 yo trans F with h/o depression, PTSD, ETOH use d/o, and multiple inpatient psychiatric admissions who presented to the [facility] ED from [facility] and reported SI. She was transferred to [facility] for tx of depression and SI. Pt currently denies SI. She is hoping to get referred to another residential program where she can have her belongings, including her makeup, and is upset that she can't have access to these belongings on M3. She expresses dissatisfaction about being admitted here but notes that she is homeless. She does request to try Abilify for tx of depression since other med trials, including sertraline up to 200 mg since August 2024 haven't been effective. Plan: Admitted to for safety and stabilization Legal Status: CV 15 min safety checks [facility] Medical H&P completed by hospitalist. Meds- Sertraline- started at 150 mg qd (reportedly took 200 mg up to 3 days ago but doesn't want to continue it 2/2 lack of efficacy) continue clonidine 0.1 mg bid, prazosin 1 mg qhs, Vistaril prn for anxiety (home meds) Trazodone prn ordered for tx of insomnia -Start Abilify 2 mg qd for tx of depression Continue home meds for hormonal tx 01/03: Mood has improved since pt has been referred to [facility] and as a back-up, she states that she could go to [place] to live w/ her friend. She signed a 3-day, which will on Thursday, 01/06. Continue current tx plan for now. 01/04: Pt has been referred to [facility] and SW will refer to respite. Pt's mood has improved due to milieu therapy/support received. Will continue current tx plan. Will likely d/c 01/06: Mood has improved, denies SI. 3-day expires tomorrow. Will d/c tomorrow unless any acute concerns arise Patient educated on: therapeutic strategies Informed Consent: understands Reason for continued inpatient stay Substantial Risk for: med/psych decompensation Time Spent With Patient Time: Total time managing care of this patient today ____ minutes.
[2025-01-05 18:46] VITALS: BP 108/59; PULSE 82; RESP 16; TEMP 36.6; O2SAT 97
[2025-01-05 21:39] VITALS: BP 123/71
[2025-01-06 08:27] VITALS: BP 112/75; PULSE 75; RESP 16; TEMP 36.3; O2SAT 98
[2025-01-06] MEDS: FINASTERIDE 1 MG 1 EACH PO (08:35)
--- NOTE | 2025-01-06 10:59 | P.DS_ITS ---
DS: Providers Provider Date of Service: 01/06/25 Date of admission: 01/01/25 18:27 Date of discharge: 01/06/25 Primary care physician: Unknown Physician Attending physician on admission: Becky Swanson Consults: 01/01/25 19:06 Consult to Hospitalist Routine Comment: Consulting Provider: [facility] Reason For Exam: Admission physical Attending physician on discharge: Becky Swanson DS: Diagnosis Discharge Diagnosis (1) Depressive disorder: Status: Acute (2) Posttraumatic stress disorder: Status: Acute (3) Alcohol use disorder: Status: Acute DS: Medications Discharge Medications Home Medications: Previous Rx's ?Medication ?Instructions ?Recorded Patient Own Medication 1 ea PO DAILY ##0 01/06/25 aripiprazole 2 mg tablet (Abilify) 2 mg PO DAILY 30 da ys #30 tabs 01/06/25 bicalutamide 50 mg tablet 50 mg PO DAILY 30 days #30 t abs 01/06/25 cholecalciferol (vitamin D3) 25 25 mcg PO DAILY 30 day s #30 tabs 01/06/25 mcg (1,000 unit) tablet clonidine HCl 0.1 mg tablet 0.1 mg PO BID 30 days #60 tabs 01/06/25 estradiol 2 mg tablet 2 mg PO TID 30 days #90 tabs 01/06/25 hydroxyzine HCl 25 mg tablet 25 mg PO TID PRN mild anx iety 30 01/06/25 days #90 tabs melatonin 10 mg tablet 10 mg PO BEDTIME PRN insomni a 30 01/06/25 days #30 tabs nicotine (polacrilex) 2 mg gum 2 mg buccal Q2H PRN Armin otine 01/06/25 Cravings 30 days #120 ea prazosin 1 mg capsule 1 mg PO BEDTIME 30 days #30 caps 01/06/25 pyridoxine (vitamin B6) 50 mg 50 mg PO DAILY #0 tabs 1 03/08/24 tablet sertraline 100 mg tablet 150 mg (1.5 x 100 mg) PO MITCH LY 30 01/06/25 days #45 tabs trazodone 50 mg tablet 50 mg PO BEDTIME MRX1 PRN In somnia 01/06/25 30 days #60 tabs Mental Status Exam Mental Status Exam Narrative: Appearance: Casually dressed. Hair is somewhat disheveled, grooming/hygiene otherwise wnl. Good eye contact Attitude: Cooperative Speech: Fluent and wnl in regard to volume, tone, prosody Motor activity: Calm and without any tics, tremors or dyskinesias. Steady gait Mood: better Affect: appropriate, reactive Thought process: goal directed and without evidence of formal thought disorder Thought content: Denies SI/violent ideation. Future oriented Perception: Denies AH/VH and does not appear to respond to internal stimuli Alert/oriented in all spheres Cognition grossly intact Insight: intact Judgment: intact Data Data Completed and Pending Completed studies during hospitalization [Text1]: 01/02/25 07:49 Sodium 139 Potassium 4.2 Chloride 106 Carbon Dioxide 26 Anion Gap 11 L BUN 13 Creatinine 0.65 Estim Creat Clear Calc 144.8 Estimated GFR > 60 Random Glucose 95 Estimat Average Glucose 117 Hemoglobin A1c % 5.7 Calcium 9.2 Magnesium 2.1 Total Bilirubin 0.4 AST 36 H ALT 91 H Alkaline Phosphatase 112 Total Protein 7.2 Albumin 4.3 Triglycerides 95 Cholesterol 209 H LDL Cholesterol, Calc 126 H HDL Cholesterol 64 Vitamin B12 1123 H Folate 9.8 TSH 0.92 Free T4 1.03 DS: Summary Hospital Course Hospital Course: Ms. Ng is a 34 yo trans F with h/o depression, PTSD, ETOH use d/o, and multiple inpatient psychiatric admissions who presented to the [facility] ED from [facility] and reported SI. She was transferred to [facility] for tx of depression and SI. On admission- Pt reports I was at a long-term care residential program, [facility] . She liked most aspects of the program since she could have access to her personal belongings s/a make-up but she decided to leave because every patient was combative (verbally). She left the program after 10 days, ran some errands and then presented to [facility] ED to try to get into another long-term program 'without patients fighting and compulsively mismanaged medications. I've been doing this dance since August with institutions . She reports that she had been drinking 3 handles of whiskey daily x 12 yrs prior to that. Her last drink was 09/07/24. Pt reports that her depressed mood is a/w hopelessness, emptiness, annihilation, sadness, bewilderment, surrender and anger . When asked about SI, she reported I feel like everyone is driving me to suicide but denies current SI or thoughts of non-suicidal self-harm. Psychiatric ROS: -Pt endorses a significant h/o trauma, issues with anger, difficulty trusting others ( 99% of humans are vile and disgusting ), occasional dissociative episodes. -Denies h/o psychosis -Denies h/o violence Pt was admitted to [facility] on a CV for safety and stabilization. She later signed a 3-day note, which on 01/06/25 (day of discharge). She was monitored on 15 min safety checks. Admission medical H&P was completed by the hospitalist. She was continued on her home medications including hydroxyzine 25 mg tid prn for anxiety, clonidine 0.1 mg bid, melatonin prn for insomnia and prazosin 1 mg qhs. She reported being off of sertraline 200 mg x 3 days and denied significant benefit since starting it in August 2024. This life insurance underwriter re-started her on sertraline at lower dose of 150 mg w/ plan for her to continue to taper if appropriate in the communicate and potentially trial a new antidepressant. Pt was started on Abilify 2 mg qd per her request to target depression and mood lability and trazodone 50-100 mg qhs prn for insomnia. She was continued on her other home medications, including hormonal therapy (bicalutamide 50 mg qd, estradiol 2 mg tid, and finasteride 1 mg qd). This life insurance underwriter reviewed medication risks, benefits and alternatives with the pt. Pt denied SI, violent ideation, AH/VH throughout her hospitalization. She had no behavioral issues on the unit. She denied medication side effects. She was visible in the milieu and interacted appropriately with staff and peers. Her mood improved and she was discharged on 01/06 when her 3-day note , with a plan to transition to [facility] respite in [place]. She has been referred to [facility] and is on a waitlist. Time spent discussing smoking cessation with patient: 3 to 10 minutes Status at Discharge Functional status at discharge: independent ambulation Overall status at discharge: patient is progressing back to baseline Time Spent with Patient Time attestation: Total time managing care of this patient today __35__ minutes. Time spent: Greater than 30 minutes Specific discharge activities: Meeting with pt, d/c planning, documentation Discharge Plan Discharge Anticipated Discharge Date/Time: 01/06/25 12:00 Patient Disposition: Home, Self-Care Discharge Diagnosis: Depressive disorder PTSD Borderline personality traits Alcohol use disorder Referrals: [facility] (psychiatry, therapy) [Other] - 1 Week Referral Note: walk in hours are Thursday-Thursday 8am-8pm and weekend hours are 9am-5pm Marj Ordoñez MD [Other] - 01/09/25 1:00 pm Referral Note: 01-06-25 Your follow up appt has been scheduled with your primary care provider on Thursday01-09-25 @ 1pm Discharge Medications: New bicalutamide 50 mg Tablet 50 mg PO DAILY 30 Days Qty: 30 0RF nicotine (polacrilex) 2 mg Gum 2 mg buccal Q2H PRN (Reason: Nicotine Cravings) 30 Days Qty: 120 0RF clonidine HCl 0.1 mg Tablet 0.1 mg PO BID 30 Days Qty: 60 0RF Protocol: Hold for SBP< HOLD for SBP < : 90 prazosin 1 mg Capsule 1 mg PO BEDTIME 30 Days Qty: 30 0RF Protocol: Hold for SBP< HOLD for SBP < : 90 aripiprazole [Abilify] 2 mg Tablet 2 mg PO DAILY 30 Days Qty: 30 0RF hydroxyzine HCl 25 mg Tablet 25 mg PO TID PRN (Reason: mild anxiety) 30 Days Qty: 90 0RF trazodone 50 mg Tablet 50 mg PO BEDTIME MRX1 PRN (Reason: Insomnia) 30 Days Qty: 60 0RF sertraline 100 mg tablet 150 mg PO DAILY 30 Days Qty: 45 0RF estradiol 2 mg tablet 2 mg PO TID 30 Days Qty: 90 0RF cholecalciferol (vitamin D3) 25 mcg (1,000 unit) Tablet 25 mcg PO DAILY 30 Days Qty: 30 0RF pyridoxine (vitamin B6) 50 mg Tablet 50 mg PO DAILY Qty: 0 0RF Patient Own Medication 1 ea PO DAILY Qty: 0 0RF Continued melatonin 10 mg tablet 10 mg PO BEDTIME PRN (Reason: insomnia) 30 Days Qty: 30 0RF Discontinued clonidine HCl 0.1 mg tablet 0.1 mg PO BID PRN (Reason: anxiety) gabapentin 600 mg tablet 600 mg PO TID prazosin 1 mg capsule 1 mg PO BEDTIME estradiol 2 mg tablet 2 mg PO TID sertraline 50 mg tablet 50 mg PO DAILY Discharge Orders: Discharge Order (Routine); Ordered 01/06/25 Ordered By: Becky Swanson Diet: Regular diet Activity on Discharge: No Restrictions Stand Alone Forms: Patient Portal Discharge page, Community Support Print Language: Swedish Care Plan Goals: Maintain safe behaviors Practice coping skills Take medications as prescribed Continue to pursue sobriety Maintain regular follow-ups with your outpatient providers Health Concerns: Depression Plan of Treatment: [facility]:00 [facility] for intake Follow up with your psychiatric provider, PCP and other outpatient providers Take your medication as prescribed Assessment: Risk assessment at the time of discharge: Patient was interviewed on the day of discharge and found to be fully oriented, without any SI or violent ideation. Pt has improved insight and judgment and plans to continue treatment Pt is not at imminent risk of harm to self or others and has a safety plan that includes presenting to the closest ER or calling 911 if feeling unsafe. Pt has been observed closely by unit staff and has not engaged in any behaviors that suggest dangerous to self or others and has demonstrated appropriate bheaviors and impulse control.
== END 2025-01-06 12:35 | disposition home or self-care (01) | DRG 881 ==
PROVIDERS: Admitting Provider Nurse Practitioner Psychiatric/Mental Health; Visit Provider Psychiatry & Neurology Psychiatry
DX: F32.A Depression, unspecified (principal); R45.851 Suicidal ideations; Z59.02 Unsheltered homelessness; F17.210 Nicotine dependence, cigarettes, uncomplicated; F64.0 Transsexualism; F10.90 Alcohol use, unspecified, uncomplicated; F60.3 Borderline personality disorder; Z71.6 Tobacco abuse counseling; Z79.899 Other long term (current) drug therapy
CPT/HCPCS: 36415; 80053; 80061; 82607; 82746; 83036; 83735; 84439; 84443

== ENCOUNTER → 2025-01-01 18:27 | Outpatient (BNV) | payer MEDICAID, SELFPAY | PROVIDERS: Admitting Provider Nurse Practitioner Psychiatric/Mental Health; Visit Provider Nurse Practitioner Family | DX: F32.A Depression, unspecified (principal) | CPT/HCPCS: 99221 ==

== ENCOUNTER → 2025-01-01 18:27 | Outpatient (BNV) | payer OTHER, SELFPAY | PROVIDERS: Admitting Provider Nurse Practitioner Psychiatric/Mental Health; Visit Provider Psychiatry & Neurology Psychiatry | DX: F32.A Depression, unspecified (principal); F43.10 Post-traumatic stress disorder, unspecified; F10.90 Alcohol use, unspecified, uncomplicated | CPT/HCPCS: 99232 ==